=== PATIENT | female | born 1965 | race Caucasian/White ===

== ENCOUNTER 2016-06-22 03:58 | Inpatient (IN) ==
[2016-06-22] MEDS ORDERED: Ipratropium/Albuterol Neb 3 ML IH ONE ×2 (04:00→09:09)
[2016-06-22] MEDS ORDERED: methylPREDNISolone 125 MG/2 ML VIAL IVP ONE (04:00)
--- NOTE | 2016-06-22 04:04 | Emergency Department Note ---
START Narrative - START START: I examined this patient and my medical decision-making was reviewed with the CAREER COACH/PA/Advanced Practice Nurse/Resident Physician. I agree with the documented findings, disposition and treatment plan as described except to the extent set forth below. ED attending note: Patient seen with emergency medicine resident Dr. Randle. Please see a copy of his note for details of the H&P, evaluation, management and disposition of this patient. We independently had [id number] contact with the patient Briefly: A 51-year-old female home O2 dependent stage IV COPD via EMS for increasing shortness of breath fever fatigue and green sputum. Has a 50+ pack year tobacco history. Patient's bilateral expiratory wheezes with decreased air movement bilaterally. Appears fatigued and ill but nontoxic. Satting 80% on supplemental O2. Patient to iv steroids EKG chest x-ray labs. Disposition pending. Admission likely however patient would like to go home if possible depending upon how she responds to treatment. Provided 35 minutes of critical care services for this patient.
--- NOTE | 2016-06-22 04:16 | Emergency Department Note ---
Disposition Clinical Impression: Acute exacerbation of chronic obstructive airways disease, Community acquired pneumonia Disposition: Admitted As Inpatient Condition: Good Referrals: Rosie Reed MD [Primary Care Provider] - Forms: ED Satisfaction Letter SOB HPI - General Chief Complaint: ED Shortness of Breath/Dyspnea Stated Complaint: CATHY Time Seen by Provider: 06/22/16 04:05 Source: patient, EMS Mode of arrival: EMS Limitations: no limitations Nursing Notes Reviewed: Yes Vital Signs Reviewed: Yes - History of Present Illness 51-year-old female presents to the ER with a chief complaint of shortness of breath. Pt Subjective Complaint: shortness of breath, cough, chest pain Onset (ago): day(s) (2) Context: recent illness Severity: severe Consistency/Duration: intermittent Improves with: oxygen, rest, bronchodilators Worsens with: nothing Known history of: COPD Associated symptoms: Reports: chest pain, fever, cough, wheezing, sputum production. Denies: lower extremity pain Treatment prior to arrival: oxygen, bronchodilator Cough present: Yes Cough Description: Involuntary Cough Frequency: Intermittent Sputum production: Yes Sputum Amount: Small Sputum Color: Yellow - Related Data Home oxygen amount: 2 liters Allergies Allergy/AdvReac Type Severity Reaction Status Date / Time No Known Allergies Allergy Verified 06/22/16 04:00 All systems ED: reviewed and negative except as stated. Constitutional: Reports: fever, chills Cardiovascular: Reports: chest pain Respiratory: Reports: cough, dyspnea, wheezes Gastrointestinal: Denies: abdominal pain, nausea, vomiting Musculoskeletal: Reports: neck pain Past Medical History - Past Medical History Attestation: Yes The following information was validated with the patient. Source: patient Medical history: Reports: COPD Surgical history: Reports: non-contributory - Social History Smoking Status: Current every day smoker Packs per day: 1 Physical Exam - General Limitations: no limitations General appearance: alert, in distress - Head Head exam: atraumatic, normocephalic, normal inspection - Eye Eye exam: Present: normal appearance - ENT ENT exam: normal exam - Neck Neck exam: Present: normal inspection - Chest Chest inspection: Present: normal inspection, symmetric chest wall rise - Respiratory Respiratory exam: Present: respiratory distress (Patient has diffuse expiratory wheezing with prolonged expiratory phase. She exhibits some abdominal breathing.), wheezes, accessory muscle use, prolonged expiratory phase - Cardiovascular Cardiovascular exam: Present: normal rhythm, tachycardia, normal heart sounds - Abdominal Exam Abdominal exam: Present: soft, Non-Tender. Absent: tenderness - Extremities Exam Extremities exam: Present: normal inspection, full ROM - Expanded Lower Extremity Exam Hip/Pelvis exam: Present: normal inspection, full ROM Upper leg exam: Present: normal inspection, full ROM Knee exam: Present: normal inspection, full ROM Lower leg exam: Present: normal inspection, full ROM Ankle exam: Present: normal inspection, full ROM Foot/toe exam: Present: normal inspection, full ROM - Neurological Exam Neurological exam: Present: alert - Psychiatric Psychiatric exam: Present: normal affect, normal mood - Skin Skin exam: Present: warm, dry, intact, normal color Course Course Narrative: 51-year-old female history of COPD, oxygen dependent on 2L nasal cannula continuous at home with one pack per day smoking for 30 years who presents to the ER via EMS with a chief complaint of shortness of breath. EMS reports she was in the mid 80s when they arrived at her house. Patient states she has been short of breath for the last 2 days. Reports intermittent fevers at home as well as cough with a productive yellow sputum. No sick contacts that she is aware of. Also reports that she has had left-sided chest pain since it started with pain into her neck. She denies a history of cardiac events, DVT or PE. No other complaints at this time. Patient was given 2 breathing treatments at home and a DuoNeb and route. She continues to have diffuse wheezing with accessory muscle use. We will give another round of DuoNeb here as well as IV Solu-Medrol. - Reevaluation(s) Reevaluation #1: Discussed results of imaging and lab work with the patient. She is not wishing to be admitted however family in the room has convinced her that she should stay. We will order blood cultures 2 and she is febrile here. Also ordered Levaquin for community acquired pneumonia. Vital Signs Temperature 102.8 F H 06/22/16 04:03 Pulse Rate 104 06/22/16 04:03 Respiratory Rate 22 06/22/16 04:03 Blood Pressure 126/70 06/22/16 04:03 O2 Sat by Pulse Oximetry 93 L 06/22/16 04:03 Temperature 102.8 F H 06/22/16 04:03 Pulse Rate 105 06/22/16 05:04 Respiratory Rate 24 06/22/16 05:04 Blood Pressure 119/82 06/22/16 05:04 O2 Sat by Pulse Oximetry 91 L 06/22/16 05:04 Oxygen Delivery Oxygen Delivery Nasal Cannula Shortness of Breath/Dyspnea - MDM Narrative Medical decision making narrative: 51-year-old female presents to the ER with a chief complaint of shortness of breath. Has been going on for roughly 2 days. She has had fevers at home. Here her chest x-ray shows a developing left lower lobe pneumonia. EKG is sinus tach. Troponin is negative. No white count. Febrile here to 102.8. Blood cultures have been obtained and communicative or pneumonia antibiotics have been started. Patient is requiring increased supplemental O2 from baseline. Patient to be admitted to the hospital for further management. - Lab Data Lab results reviewed: Yes I reviewed the patient's lab results. Result diagrams: 06/22/16 04:26 06/22/16 04:26 Lab Results 06/22/16 06/22/16 06/22/16 Range/Units 04:26 04:26 04:26 WBC 9.7 (4.3-11.1) K/mcL RBC 4.43 (3.82-4.97) M/mcL Hgb 14.1 (11.5-15.4) g/dL Hct 41.6 (35.3-44.9) % MCV 93.9 (83.0-100.0) fL MCH 31.8 (28.0-33.3) pg MCHC 33.9 (31.6-35.5) g/dL RDW 13.9 (11.5-14.5) % Plt Count 144 (140-400) K/mcL MPV 10.9 (9.4-12.4) fL Immature Gran % 0.3 (0-4) % Seg Neutrophils % 79.2 % Lymphocytes % 9.8 % Monocytes % 10.6 % Eosinophils % 0.0 % Basophils % 0.1 % Neutrophils # 7.6 (1.6-8.9) K/mcL Lymphocytes # 1.0 (0.6-4.6) K/mcL Monocytes # 1.0 (0.0-1.3) K/mcL Eosinophils # 0.0 (0.0-0.6) K/mcL Basophils # 0.0 (0.0-0.2) K/mcL Sodium 131 L (136-145) mEq/L Potassium 3.1 L (3.5-4.5) mEq/L Chloride 95 L (98-109) mEq/L Carbon Dioxide 27 (19-29) mEq/L BUN 6 L (7-20) mg/dL Creatinine 0.68 (0.57-1.11) mg/dL Est GFR ( Amer) > 60 (> 60) Est GFR (Non-Af Amer) > 60 (> 60) BUN/Creatinine Ratio 9 (6-26) Glucose 123 H (70-99) mg/dL Calculated Osmolality 271 L (280-300) Lactic Acid 0.9 (0.5-2.2) mmol/L Calcium 8.6 (8.6-10.8) mg/dL Troponin I (0-0.03) ng/mL B-Natriuretic Peptide (0-100) pg/mL 06/22/16 06/22/16 Range/Units 04:26 04:26 WBC (4.3-11.1) K/mcL RBC (3.82-4.97) M/mcL Hgb (11.5-15.4) g/dL Hct (35.3-44.9) % MCV (83.0-100.0) fL MCH (28.0-33.3) pg MCHC (31.6-35.5) g/dL RDW (11.5-14.5) % Plt Count (140-400) K/mcL MPV (9.4-12.4) fL Immature Gran % (0-4) % Seg Neutrophils % % Lymphocytes % % Monocytes % % Eosinophils % % Basophils % % Neutrophils # (1.6-8.9) K/mcL Lymphocytes # (0.6-4.6) K/mcL Monocytes # (0.0-1.3) K/mcL Eosinophils # (0.0-0.6) K/mcL Basophils # (0.0-0.2) K/mcL Sodium (136-145) mEq/L Potassium (3.5-4.5) mEq/L Chloride (98-109) mEq/L Carbon Dioxide (19-29) mEq/L BUN (7-20) mg/dL Creatinine (0.57-1.11) mg/dL Est GFR ( Amer) (> 60) Est GFR (Non-Af Amer) (> 60) BUN/Creatinine Ratio (6-26) Glucose (70-99) mg/dL Calculated Osmolality (280-300) Lactic Acid (0.5-2.2) mmol/L Calcium (8.6-10.8) mg/dL Troponin I 0.00 (0-0.03) ng/mL B-Natriuretic Peptide < 10 (0-100) pg/mL - Radiology Data Radiology results reviewed: Yes I reviewed the patient's radiology results. Chest X-Ray 06/22/16 04:00 IMPRESSION: Findings compatible with COPD with interval development of left basilar pneumonia. D/ / Solitario Camacho MD / Solitario Camacho MD Interpreting Provider: Solitario Camacho MD - EKG Data EKG attestation: Yes I reviewed and interpreted this EKG. EKG results narrative: EKG demonstrated sinus tachycardia with a rate of 107. IN interval 84 QRS duration 85 QTC 374 normal axis and no ST elevations or depressions. No acute ischemic findings. No significant changes from previous EKG dated 09/13/1999 S.B.ARubén - Lokesh.[email or web address] Situation: Demographics, MOA Background: Presenting Complaint, Relevant PMH, Meds, & Allergies Assessment: Vital Signs, Course and respsone to treatment, Exam Concerns, Patient/Family Expectation, Pertinant Lab Results, Outstanding Labs Recommendation: Barrier(s) to disposition, Recommendation based on pending studies, treatments, or consults S.B.ARubén Report Given to: Dr. Kitty Church Repor Time: 05:24
[2016-06-22] MEDS ORDERED: *HR* HYDROcodone/Acet 5/325 mg TABLET PO ONE (04:40)
[2016-06-22 04:43] LABS: Basophils % 0.1 %; Hematocrit 41.6 % (35.3-44.9); Hemoglobin 14.1 g/dL (11.5-15.4); Immature Granulocytes % 0.3 % (0-4); Lymphocytes % 9.8 %; Mean Corpuscular HGB Conc 33.9 g/dL (31.6-35.5); Mean Corpuscular Hemoglobin 31.8 pg (28.0-33.3); Mean Corpuscular Volume 93.9 fL (83.0-100.0); Mean Platelet Volume 10.9 fL (9.4-12.4); Monocytes % 10.6 %; Neutrophils # 7.6 K/mcL (1.6-8.9); Platelet Count 144 K/mcL (140-400); Red Blood Count 4.43 M/mcL (3.82-4.97); Red Cell Distribution Width 13.9 % (11.5-14.5); Segmented Neutrophils % 79.2 %
[2016-06-22] MEDS ORDERED: Levofloxacin 750 MG/150 ML 750 MG/150 ML BAG IVPB ONE (04:45)
[2016-06-22 04:52] LABS: BUN/Creatinine Ratio 9 (6-26); Blood Urea Nitrogen 6 mg/dL (7-20); Calcium 8.6 mg/dL (8.6-10.8); Carbon Dioxide 27 mEq/L (19-29); Chloride 95 mEq/L (98-109); Glucose 123 mg/dL (70-99); Osmolality,Calculated 271 (280-300); Potassium 3.1 mEq/L (3.5-4.5); Sodium 131 mEq/L (136-145); eGFR For African Americans > 60 (> 60); eGFR For Non-African Americans > 60 (> 60)
[2016-06-22] MEDS ORDERED: Ibuprofen 400 MG TABLET PO PRN (08:32)
[2016-06-22] MEDS ORDERED: Naloxone 0.4 MG/ML INJ IVP PRN (08:32)
[2016-06-22] MEDS ORDERED: *HR* HYDROcodone/Acet 5/325 mg TABLET PO PRN (08:32)
[2016-06-22] MEDS ORDERED: Acetaminophen 325 MG TABLET PO PRN (08:32)
[2016-06-22] MEDS ORDERED: 0.9 % Sodium Chloride 1,000 ML IVC SCH (08:45)
[2016-06-22] MEDS ORDERED: Levofloxacin 750 MG/150 ML 750 MG/150 ML BAG IVPB SCH (09:00)
--- NOTE | 2016-06-22 09:06 | Internal Med History&Physical ---
Date of Encounter: 06/22/16 Time of Encounter: 09:01 Assessment and Plan (1) Tobacco abuse Current visit: Yes Status: Acute I have offered smoking cessation counseling. The patient has not ready to contemplate the idea quitting smoking at this time. I will provide nicotine replacement therapy during this hospitalization. (2) Sepsis due to pneumonia Current visit: Yes Status: Acute Diagnosed based on tachycardia and tachypnea and presence of infection in the form of pneumonia. Lactic acid was within normal limits. We will treat the patient with normal saline IV bolus. 2 blood cultures were sent. We will follow up blood cultures respiratory culture. Will treat patient with IV Levaquin for pneumonia. (3) DVT prophylaxis Current visit: Yes Status: Acute Encourage early ambulation. She does not require some pharmacological prophylaxis as she has fully ambulatory. (4) Acute and chronic respiratory failure with hypoxia Current visit: Yes Status: Acute Oxygen by nasal cannula to maintain saturation above 92. (5) Acute exacerbation of chronic obstructive airways disease Current visit: Yes Status: Acute Diagnosed based on tachypnea, hypoxia and profound expiratory wheezes. We will treat this with inhaled bronchodilators and intravenous Levaquin as well as intravenous steroids. (6) Community acquired pneumonia Current visit: Yes Status: Acute We will treat her with IV Levaquin, oxygen by nasal cannula. Follow-up blood cultures, obtain respiratory culture. She has pleuritic chest pain and will provide [place] for pain. (7) Pleuritic chest pain Current visit: Yes Status: Acute Likely secondary to pneumonia. We will treat this with [place]. ACS is also a possibility given tobacco smoking is a risk factor as well as positive family history. We will place the patient on telemetry and trend troponin. Internal Medicine - H&P: HPI Chief complaint: Chest pain Admitted From: Emergency Dept Plans for Post Hospital Care: Home History of present illness: Ms. Barraza is a 51 year old female with past medical history significant for COPD who presented to the hospital for chest pain and shortness of breath. She states that she started having severe, sharp left-sided chest pain, located under her left breast which started 2 days ago and had progressively got worse. The pain was worse on inspiration and was associated with worsening shortness of breath and wheezing. She reports associated productive cough and subjective fevers. She called EMS and on arrival her oxygen saturation was 83%. In the emergency department a chest x-ray showed a left lower lobe infiltrate. She was hypoxic to low 80s on 2 L by nasal cannula which she usually wears at home. She was treated with Levaquin and DuoNeb and Solu-Medrol and referred for admission. Review of systems: As above, additionally positive for headache, positive for anxiety, positive for back pain, positive for seasonal allergies. The remainder of 10 point review of systems was negative. Past medical history COPD and chronic hypoxic respiratory failure. She wears oxygen by nasal cannula at night at 2 L/m. Surgical history: 2, hysterectomy and cholecystectomy Family history patient's mother suffered with COPD. 2 brothers suffered coronary artery disease. Her older brother had a CABG at age 52. Patient's sister suffered a myocardial infarction. Past Med Surg Social Fam HX - Past Medical History Medical history: COPD Psychiatric history: anxiety - Past Surgical History Surgical History: non-contributory - Social History Smoking Status: Current every day smoker Packs per day: 1 Smokeless Tobacco Status: No Alcohol use: none Drug use: none Internal Medicine - H&P: Meds Aclidinium [place] [Tudorza Pressair] 1 puff IH BID 06/22/16 [History] Albuterol Neb [Proventil Neb] 2.5 mg IH Q4HR PRN 06/22/16 [History] Albuterol Sulfate [Albuterol Inhaler] 2 puff IH Q4H PRN 06/22/16 [History] Budesonide/Formoterol 160/4.5 [Symbicort 160/4.5] 1 puff IH BIDR 06/22/16 [ History] Montelukast [Singulair] 10 mg PO DAILY 06/22/16 [History] Nicotine Patch [Nicoderm] 21 mg TP DAILY 06/22/16 [History] Allergies No Known Allergies Allergy (Verified 06/22/16 04:00) All Systems PM: A 10-system review of systems was performed and is negative for pertinent findings except as documented above in the HPI. - Constitutional Vitals: Temp Pulse Resp BP Pulse Ox 97.6 F 89 22 93/60 93 L 06/22/16 08:01 06/22/16 08:01 06/22/16 08:01 06/22/16 08:01 06/22/16 08:01 General appearance: Present: A&O X 3 - Eye Eye exam: Present: PERRL, conjuntiva pink, sclera anicteric Pupils: Present: PERRL - Neck Neck exam general surgery: Present: supple, trachea midline. Absent: lymphadenopathy - Respiratory Respiratory exam: Present: rales, wheezes. Absent: accessory muscle use, rhonchi Additional comments: Bilateral expiratory wheezes and fine crackles at the left base. - Cardiovascular Cardiovascular exam: Present: RRR, +S1, +S2. Absent: diastolic murmur, gallop, rubs, systolic murmur - GI/Abdominal GI/Abdominal exam: Present: normal bowel sounds, soft, no peritoneal signs. Absent: distended, tenderness - Extremities Exam Extremities exam: Present: warm, radial pulses palpable and symetrical. Absent : calf tenderness, cyanotic, pedal edema - Neurological Exam Neurological exam: Present: CN II-XII intact, oriented X3, no focal deficits. Absent: pronater drift, facial droop, speech deficit - Skin Skin exam: Present: dry, intact Internal Med - H&P Results - Labs CBC & Chem 7: 06/22/16 04:26 06/22/16 04:26 - EKG Data -: EKG Interpreted by Myself (Sinus tachycardia 10 7 bpm, normal axis and intervals, nonspecific ST and T) EKG shows normal: intervals, ST-T waves (Nonspecific ST T wave changes)
[2016-06-22] MEDS ORDERED: Ipratropium/Albuterol Neb 3 ML IH PRN (09:10)
[2016-06-22 10:46] VITALS: BP 96/61
[2016-06-22] MEDS ORDERED: 0.9 % Sodium Chloride 1,000 ML IVC ONE (10:48)
[2016-06-22] MEDS ORDERED: Nicotine 21 MG PATCH.TD24 TD SCH (11:00)
[2016-06-22] MEDS ORDERED: Ipratropium/Albuterol Neb 3 ML IH SCH (12:00)
[2016-06-22] MEDS ORDERED: MethylPREDNISolone 40 MG/ML VIAL IVP SCH (12:00)
--- NOTE | 2016-06-22 12:58 | Discharge Summary ---
Date of Encounter: 06/23/16 Time of Encounter: 12:54 - Discharge Diagnosis (1) Tobacco abuse Priority: Secondary Status: Acute (2) Sepsis due to pneumonia Priority: Secondary Status: Acute (3) DVT prophylaxis Priority: Secondary Status: Acute (4) Acute and chronic respiratory failure with hypoxia Priority: Secondary Status: Acute (5) Acute exacerbation of chronic obstructive airways disease Priority: Secondary Status: Acute (6) Community acquired pneumonia Priority: Primary Status: Acute (7) Pleuritic chest pain Priority: Secondary Status: Acute - Discharge Medications Prescriptions: GuaiFENesin/Dextromethorphan [Robitussin/Dm] 5 ml PO Q4HR PRN #150 udc PRN Reason: Cough Ipratropium/Albuterol Neb [Duoneb] 3 ml IH [id number] #60 inhsol Levofloxacin [Levaquin] 750 mg PO DAILY #6 tablet PredniSONE 40 mg PO DAILY #5 tablet Home Medications: Acetaminophen [Tylenol] 650 mg PO Q6HR PRN #0 tablet 06/22/16 [Rx] Aclidinium [place] [Tudorza Pressair] 1 puff IH BID 06/22/16 [History] Albuterol Neb [Proventil Neb] 2.5 mg IH Q4HR PRN 06/22/16 [History] Albuterol Sulfate [Albuterol Inhaler] 2 puff IH Q4H PRN 06/22/16 [History] Budesonide/Formoterol 160/4.5 [Symbicort 160/4.5] 1 puff IH BIDR 06/22/16 [ History] GuaiFENesin/Dextromethorphan [Robitussin/Dm] 5 ml PO Q4HR PRN #150 udc 06/22/16 [Rx] Ipratropium/Albuterol Neb [Duoneb] 3 ml IH [id number] #60 inhsol 06/22/16 [Rx] Levofloxacin [Levaquin] 750 mg PO DAILY #6 tablet 06/22/16 [Rx] Montelukast [Singulair] 10 mg PO DAILY 06/22/16 [History] Nicotine Patch [Nicoderm] 21 mg TP DAILY 06/22/16 [History] PredniSONE 40 mg PO DAILY #5 tablet 06/22/16 [Rx] Allergies/Adverse Reactions: Allergies No Known Allergies Allergy (Verified 06/22/16 04:00) Date of admission: 06/22/16 09:12 Primary care physician: Rosie Reed MD - Patient Status Disposition: Left Against Medical Advice Condition: Good Overall status at discharge: patient is not back to baseline - Discharge Instructions Follow Up With: Rosie Reed MD [Primary Care Provider] - - Diet and Activity Diet: advance to your usual diet Hospital course: Ms. Barraza is a 51 year old female who presented to the hospital with shortness of breath and chest pain. She was diagnosed with left lower lobe pneumonia. She was admitted to the medical service and treated with IV Levaquin, IV fluids , oxygen by nasal cannula, inhaled bronchodilators and intravenous steroids for COPD exacerbation. She improved. On the day of admission she decided to sign out AGAINST MEDICAL ADVICE. I have had repeated conversations with her regarding the risks of her leaving AGAINST MEDICAL ADVICE and the benefits of continuing to be treated in the hospital. Both the floor nurse and the nurse managers separately asked her to reconsider. I have evaluated her mental status and capacities several times during the day and found her to be appropriate. There was no evidence of any mental impairment caused by medical disease such as severe sepsis or hypercarbia. She signed out AGAINST MEDICAL ADVICE. I gave her prescriptions for antibiotics prednisone bronchodilators. - Time Spent with Patient Total time spent providing and/or coordinating discharge services: - Constitutional Vitals: Temp Pulse Resp BP Pulse Ox 98.4 F 86 18 96/61 94 L 06/22/16 10:45 06/22/16 10:45 06/22/16 11:15 06/22/16 10:45 06/22/16 11:15 General appearance: Present: A&O X 3 - Respiratory Respiratory exam: Present: wheezes. Absent: accessory muscle use, rales, rhonchi, tachypnea - Cardiovascular Cardiovascular exam: Present: RRR, +S1, +S2. Absent: diastolic murmur, gallop, rubs, systolic murmur
--- NOTE | 2016-06-22 15:26 | Electrocardiograph Report ---
[address] [place], [place] [address] Test Date: 2016-06-22 Pat Name: [facility] Department: [facility] Room: 2A32 Gender: F [employer]: : [id number] Requested By: Jayant Covarrubias Order Number: [id number] Reading MD: Russ Bermeo MD Measurements Intervals [place] Rate: 107 P: 67 [place]: 84 QRS: 45 QRSD: 85 T: 6 QT: 311 QTc: 374 Interpretive Statements SINUS TACHYCARDIA WITH SHORT [place] INTERVAL Electronically Signed On 06-22-2016 15:25:07 EST by Russ Bermeo MD
[2016-06-23] MEDS ORDERED: Nicotine 14 MG PATCH.TD24 TD SCH (09:00)
[2016-06-23] MEDS ORDERED: Levofloxacin 750 MG/150 ML 750 MG/150 ML BAG IVPB SCH (09:00)
== END 2016-06-22 14:25 | disposition left against medical advice (07) | DRG 720 ==
LOC: 2ANU 03:58 → EMEROO 03:58 → 2ANU 05:59
PROVIDERS: ADMIT Pediatrics; ATTEND Internal Medicine

== ENCOUNTER 2019-02-19 09:49 | Observation (INO) ==
[2019-02-19] MEDS ORDERED: Aspirin 325 MG TABLET PO ONE (10:12)
[2019-02-19] MEDS ORDERED: Nitroglycerin 0.4 MG TAB.SUBL SL PRN (10:12)
[2019-02-19 10:25] LABS: Basophils % 0.3 %; Eosinophils # 0.3 K/mcL (0.0-0.6); Eosinophils % 2.7 %; Hematocrit 50.8 % (35.3-44.9); Hemoglobin 16.8 g/dL (11.5-15.4); Immature Granulocytes % 0.4 % (0-4); Lymphocytes # 1.9 K/mcL (0.6-4.6); Lymphocytes % 18.1 %; Mean Corpuscular HGB Conc 33.1 g/dL (31.6-35.5); Mean Corpuscular Hemoglobin 31.7 pg (28.0-33.3); Mean Corpuscular Volume 95.8 fL (83.0-100.0); Mean Platelet Volume 10.4 fL (9.4-12.4); Monocytes % 9.8 %; Neutrophils # 7.2 K/mcL (1.6-8.9); Platelet Count 219 K/mcL (140-400); Red Cell Distribution Width 13.1 % (11.5-14.5); Segmented Neutrophils % 68.7 %; White Blood Count 10.5 K/mcL (4.3-11.1)
[2019-02-19] MEDS ORDERED: 0.9 % Sodium Chloride 500 ML IVC ONE ×2 (10:34→12:21)
[2019-02-19 10:47] LABS: BUN/Creatinine Ratio 15 (6-26); Blood Urea Nitrogen 9 mg/dL (6-20); Calcium 9.7 mg/dL (8.6-10.3); Carbon Dioxide 27 mEq/L (23-29); Chloride 100 mEq/L (98-107); Glucose 138 mg/dL (70-105); Osmolality,Calculated 281 (280-300); Potassium 4.2 mEq/L (3.5-5.1); Sodium 135 mEq/L (136-145); eGFR For African Americans > 60 (> 60); eGFR For Non-African Americans > 60 (> 60)
[2019-02-19 10:48] LABS: Troponin I < 0.03 ng/mL (< 0.04)
[2019-02-19 11:00] LABS: INR 1.1
[2019-02-19 11:02] LABS: Activated Partial Thrombo Time 33.2 Seconds (26.0-36.0)
[2019-02-19 11:03] LABS: D-Dimer < 215 ng/mLFEU (0-500)
[2019-02-19] MEDS ORDERED: Ipratropium/Albuterol Neb 3 ML IH ONE (11:43)
[2019-02-19] MEDS ORDERED: *HR* FentaNYL (PF) 100 MCG/2 ML VIAL IVP ONE (11:44)
[2019-02-19] MEDS ORDERED: *HR* Promethazine 25 MG/ML VIAL IVP PRN (13:34)
[2019-02-19] MEDS ORDERED: Naloxone 0.4 MG/ML INJ IVP PRN (13:34)
[2019-02-19] MEDS ORDERED: Ondansetron ODT 4 MG TAB.RAPDIS SL PRN (13:34)
[2019-02-19] MEDS ORDERED: Morphine Sulfate 2 MG/ML SYRINGE IVP PRN (14:32)
[2019-02-19] MEDS ORDERED: Ipratropium/Albuterol Neb 3 ML IH PRN (16:10)
[2019-02-19] MEDS: *HR* OxyCODONE Immed Rel 5 MG TABLET PO PRN ×2 (17:41→22:46)
[2019-02-19] MEDS ORDERED: Nicotine 21 MG PATCH.TD24 TD SCH (20:15)
[2019-02-19] MEDS: Budesonide/Formoterol 160/4.5 1 PUFF INH IH SCH (21:35)
[2019-02-20 02:11] LABS: Basophils % 0.3 %; Eosinophils # 0.2 K/mcL (0.0-0.6); Eosinophils % 2.9 %; Hematocrit 43.1 % (35.3-44.9); Immature Granulocytes % 0.4 % (0-4); Lymphocytes # 1.6 K/mcL (0.6-4.6); Lymphocytes % 22.9 %; Mean Corpuscular HGB Conc 33.6 g/dL (31.6-35.5); Mean Corpuscular Hemoglobin 31.7 pg (28.0-33.3); Mean Corpuscular Volume 94.3 fL (83.0-100.0); Mean Platelet Volume 10.5 fL (9.4-12.4); Monocytes # 0.7 K/mcL (0.0-1.3); Neutrophils # 4.3 K/mcL (1.6-8.9); Platelet Count 187 K/mcL (140-400); Red Blood Count 4.57 M/mcL (3.82-4.97); Red Cell Distribution Width 13.2 % (11.5-14.5); Segmented Neutrophils % 63.5 %; White Blood Count 6.8 K/mcL (4.3-11.1)
[2019-02-20 02:13] LABS: Hemoglobin 14.5 g/dL (11.5-15.4)
[2019-02-20 02:34] LABS: BUN/Creatinine Ratio 26 (6-26); Blood Urea Nitrogen 14 mg/dL (6-20); Calcium 8.7 mg/dL (8.6-10.3); Carbon Dioxide 28 mEq/L (23-29); Chloride 105 mEq/L (98-107); Glucose 98 mg/dL (70-105); Osmolality,Calculated 284 (280-300); Sodium 137 mEq/L (136-145); eGFR For African Americans > 60 (> 60); eGFR For Non-African Americans > 60 (> 60)
[2019-02-20] MEDS: Budesonide/Formoterol 160/4.5 1 PUFF INH IH SCH (07:32)
[2019-02-20] MEDS ORDERED: D5% in Water 1,000 ML IVC PRN (08:43)
[2019-02-20] MEDS ORDERED: Dextrose Gel 15 GM/37.5 ML TUBE PO PRN ×2 (08:43)
[2019-02-20] MEDS ORDERED: *HR* Dextrose 50 % in Water (Syg) 50 ML SYRINGE IVP PRN (08:43)
[2019-02-20] MEDS ORDERED: NON-FORMULARY MEDICATION 1 EACH EACH (Fluticasone/Vilanterol [Breo Ellipta 100-25 Mcg Inh] PO SCH (09:00)
[2019-02-20] MEDS ORDERED: Aspirin 81 MG TAB.CHEW PO SCH (09:00)
[2019-02-20 10:37] VITALS: BP 96/64
[2019-02-20] MEDS ORDERED: Insulin LISPRO 300 UNITS/3 ML VIAL SQ SCH ×2 (11:30→21:00)
== END 2019-02-20 13:20 | disposition home or self-care (01) ==
LOC: 3BNU 09:49 → EMEROOARM 09:49 → 3BNU 13:38
PROVIDERS: ADMIT Student in an Organized Health Care Education/Training Program; ATTEND Student in an Organized Health Care Education/Training Program

== ENCOUNTER 2019-03-13 21:20 | Inpatient (IN) ==
[2019-03-13] MEDS ORDERED: methylPREDNISolone 125 MG/2 ML VIAL ONE (21:28)
[2019-03-13] MEDS ORDERED: *HR* LORazepam 2 MG/ML VIAL ONE (21:29)
[2019-03-13] MEDS ORDERED: Ipratropium/Albuterol Neb 3 ML ONE (21:29)
[2019-03-13] MEDS ORDERED: cefTRIAXone 1,000 MG in Water for inj. (sterile) 10 ML IVP ONE (21:32)
[2019-03-13] MEDS ORDERED: Azithromycin 500 MG in 0.9 % Sodium Chloride 250 ML IVPB ONE (21:32)
[2019-03-13] MEDS ORDERED: *HR* LORazepam 2 MG/ML VIAL IVP ONE (21:33)
[2019-03-13] MEDS ORDERED: methylPREDNISolone 125 MG/2 ML VIAL IVP ONE (21:34)
[2019-03-13] MEDS ORDERED: Cefepime HCl 2,000 MG in Water for inj. (sterile) 20 ML IVP ONE (21:38)
[2019-03-13] MEDS ORDERED: 0.9 % Sodium Chloride 250 ML ONE (21:41)
[2019-03-13 21:47] LABS: Basophils % 0.2 %; Eosinophils # 0.1 K/mcL (0.0-0.6); Eosinophils % 0.5 %; Hematocrit 50.7 % (35.3-44.9); Hemoglobin 17.5 g/dL (11.5-15.4); Immature Granulocytes % 0.4 % (0-4); Lymphocytes # 2.1 K/mcL (0.6-4.6); Lymphocytes % 12.7 %; Mean Corpuscular HGB Conc 34.5 g/dL (31.6-35.5); Mean Corpuscular Hemoglobin 31.9 pg (28.0-33.3); Mean Corpuscular Volume 92.3 fL (83.0-100.0); Monocytes # 1.4 K/mcL (0.0-1.3); Monocytes % 8.8 %; Neutrophils # 12.7 K/mcL (1.6-8.9); Platelet Count 299 K/mcL (140-400); Red Blood Count 5.49 M/mcL (3.82-4.97); Red Cell Distribution Width 12.9 % (11.5-14.5); Segmented Neutrophils % 77.4 %; White Blood Count 16.4 K/mcL (4.3-11.1)
[2019-03-13 21:52] LABS: INR 1.1; Prothrombin Time 12.8 Seconds (9.4-12.1)
[2019-03-13] MEDS ORDERED: Ondansetron 4 MG/2 ML VIAL IVP ONE (21:52)
[2019-03-13 22:05] LABS: VBG HCO3 27 mEq/L (21-27); VBG PCO2 57 mmHg (41-51); VBG PH 7.28 pH Units (7.32-7.42); VBG PO2 84 mmHg (25-50)
[2019-03-13 22:11] LABS: Alanine Aminotransferase 21 Units/L (7-52); Albumin 4.3 g/dL (3.5-5.7); Albumin/Globulin Ratio 1.1 (1.1-2.2); Alkaline Phosphatase 102 Units/L (34-104); Aspartate Amino Transferase 26 Units/L (13-39); BUN/Creatinine Ratio 16 (6-26); Bilirubin,Direct 0.2 mg/dL (0.0-0.2); Bilirubin,Indirect 0.3 mg/dL (0.0-1.0); Bilirubin,Total 0.5 mg/dL (0.3-1.0); Blood Urea Nitrogen 8 mg/dL (6-20); Calcium 10.1 mg/dL (8.6-10.3); Carbon Dioxide 27 mEq/L (23-29); Chloride 96 mEq/L (98-107); Globulin 3.8 g/dL (2.4-3.5); Glucose 218 mg/dL (70-105); Osmolality,Calculated 283 (280-300); Potassium 4.1 mEq/L (3.5-5.1); Sodium 134 mEq/L (136-145); Total Protein 8.1 g/dL (6.4-8.9); Troponin I 0.03 ng/mL (< 0.04); eGFR For African Americans > 60 (> 60); eGFR For Non-African Americans > 60 (> 60)
[2019-03-13] MEDS ORDERED: 0.9 % Sodium Chloride 1,500 ML IV ONE (22:43)
[2019-03-13] MEDS ORDERED: 0.9 % Sodium Chloride 1,000 ML ONE (23:14)
[2019-03-14] MEDS ORDERED: Morphine Sulfate 2 MG/ML SYRINGE IVP ONE (00:42)
[2019-03-14] MEDS ORDERED: Naloxone 0.4 MG/ML INJ IVP PRN (01:17)
[2019-03-14] MEDS ORDERED: Vancomycin (wt based) 1,000 MG VIAL IVPB SCH (02:00)
[2019-03-14] MEDS ORDERED: Isovue-370 500 ML BOTTLE IVP ONE (02:03)
[2019-03-14] MEDS: Ipratropium/Albuterol Neb 3 ML IH SCH ×6 (03:18→23:49)
[2019-03-14 03:25] LABS: ABG Base Excess 1 mEq/L (-2 to 3); ABG HCO3 29 mEq/L (21-27); ABG Oxygen Saturation 96 % (95-98); ABG PCO2 61 mmHg (35-45); ABG PH 7.29 pH Units (7.32-7.45); ABG PO2 90 mmHg (85-104); ABG TCO2 31 mEq/L (20-26)
[2019-03-14] MEDS: *HR* Heparin 5,000 UNIT/ML VIAL SQ SCH ×3 (05:06→21:28)
[2019-03-14] MEDS: Pantoprazole 40 MG VIAL IVP SCH (05:06)
[2019-03-14] MEDS: Acetaminophen 325 MG TABLET PO PRN ×2 (05:07→12:11)
[2019-03-14 05:21] LABS: Hematocrit 43.2 % (35.3-44.9); Hemoglobin 14.4 g/dL (11.5-15.4); Immature Granulocytes % 0.3 % (0-4); Lymphocytes # 0.4 K/mcL (0.6-4.6); Mean Corpuscular HGB Conc 33.3 g/dL (31.6-35.5); Mean Corpuscular Hemoglobin 31.6 pg (28.0-33.3); Mean Corpuscular Volume 94.9 fL (83.0-100.0); Monocytes # 0.1 K/mcL (0.0-1.3); Monocytes % 0.7 %; Neutrophils # 6.3 K/mcL (1.6-8.9); Platelet Count 186 K/mcL (140-400); Red Blood Count 4.55 M/mcL (3.82-4.97); White Blood Count 6.8 K/mcL (4.3-11.1)
[2019-03-14 05:42] LABS: BUN/Creatinine Ratio 22 (6-26); Blood Urea Nitrogen 10 mg/dL (6-20); Carbon Dioxide 25 mEq/L (23-29); Chloride 104 mEq/L (98-107); Glucose 137 mg/dL (70-105); Osmolality,Calculated 283 (280-300); Potassium 4.4 mEq/L (3.5-5.1); Sodium 136 mEq/L (136-145); eGFR For African Americans > 60 (> 60); eGFR For Non-African Americans > 60 (> 60)
[2019-03-14] MEDS ORDERED: Aminoglycoside Consult 1 EACH MC ONE (07:33)
[2019-03-14] MEDS: Budesonide/Formoterol 80/4.5 1 PUFF INH IH SCH (07:50)
[2019-03-14] MEDS ORDERED: Piperacillin/Tazobactam 3.375 GM in 0.9 % Sodium Chloride Mini Bag 100 ML IVPB SCH (08:00)
[2019-03-14] MEDS ORDERED: levoFLOXacin 750 MG/150 ML 750 MG/150 ML BAG IVPB SCH (09:00)
[2019-03-14] MEDS ORDERED: NON-FORMULARY MEDICATION 1 EACH EACH (Umeclidinium Bromide [Incruse Ellipta] 1 PUFF) IH SCH (09:00)
[2019-03-14] MEDS ORDERED: MethylPREDNISolone 40 MG/ML VIAL IVP ONE (09:00)
[2019-03-14] MEDS: predniSONE 20 MG TABLET PO SCH (09:24)
[2019-03-14] MEDS: Aspirin 81 MG TAB.CHEW PO SCH (09:25)
[2019-03-14] MEDS: Nicotine 21 MG PATCH.TD24 TD SCH (09:25)
[2019-03-14] MEDS ORDERED: 0.9 % Sodium Chloride 500 ML IVC SCH (09:45)
[2019-03-14 10:51] LABS: Bilirubin,Urine Negative (Negative); Blood,Urine Negative (Negative); Clarity,Urine Clear (Clear); Color,Urine Yellow (Yellow); Glucose,Urine (UA) Normal (Normal); Ketones,Urine 15 mg/dL (Negative); Leukocyte Esterase,Urine Negative (Negative); Nitrite,Urine Negative (Negative); Protein,Urine Trace mg/dL (Neg-Trace); Specific Gravity,Urine > 1.030 (1.010-1.025); Urobilinogen,Urine Normal (Normal)
[2019-03-14 12:17] LABS: Adenovirus Not Detected (Not Detect); Bordetella Pertussis Not Detected (Not Detect); Chlamydophila pneumoniae Not Detected (Not Detect); Coronavirus 229E Not Detected (Not Detect); Coronavirus HKU1 Not Detected (Not Detect); Coronavirus NL63 Not Detected (Not Detect); Coronavirus OC43 Not Detected (Not Detect); Human Metapneumovirus Not Detected (Not Detect); Human Rhinovirus/Enterovirus DETECTED (Not Detect); Influenza A Subtype 2009 H1 Not Detected (Not Detect); Influenza A Untypeable Not Detected (Not Detect); Influenza B Not Detected (Not Detect); Mycoplasma pneumoniae Not Detected (Not Detect); Parainfluenza Virus 1 Not Detected (Not Detect); Parainfluenza Virus 2 Not Detected (Not Detect); Parainfluenza Virus 3 Not Detected (Not Detect); Parainfluenza Virus 4 Not Detected (Not Detect); Respiratory Syncytial Virus Not Detected (Not Detect)
[2019-03-14] MEDS: Azithromycin 500 MG in 0.9 % Sodium Chloride 250 ML IVPB SCH (14:02)
[2019-03-14] MEDS: Ketorolac 15 MG/ML VIAL IVP PRN (15:29)
[2019-03-14] MEDS ORDERED: *HR* LORazepam 1 MG TABLET PO ONE (21:20)
[2019-03-14] MEDS ORDERED: Ipratropium/Albuterol Neb 3 ML IH ONE (23:14)
[2019-03-15] MEDS: Ipratropium/Albuterol Neb 3 ML IH SCH ×6 (03:28→23:35)
[2019-03-15 05:03] LABS: Basophils % 0.1 %; Hematocrit 42.4 % (35.3-44.9); Hemoglobin 13.7 g/dL (11.5-15.4); Immature Granulocytes % 0.6 % (0-4); Lymphocytes # 1.5 K/mcL (0.6-4.6); Lymphocytes % 14.5 %; Mean Corpuscular HGB Conc 32.3 g/dL (31.6-35.5); Mean Corpuscular Hemoglobin 31.6 pg (28.0-33.3); Mean Corpuscular Volume 97.7 fL (83.0-100.0); Mean Platelet Volume 10.4 fL (9.4-12.4); Monocytes # 0.9 K/mcL (0.0-1.3); Monocytes % 8.7 %; Neutrophils # 7.7 K/mcL (1.6-8.9); Platelet Count 202 K/mcL (140-400); Red Blood Count 4.34 M/mcL (3.82-4.97); Red Cell Distribution Width 13.2 % (11.5-14.5); Segmented Neutrophils % 76.1 %; White Blood Count 10.1 K/mcL (4.3-11.1)
[2019-03-15] MEDS: *HR* Heparin 5,000 UNIT/ML VIAL SQ SCH ×3 (05:15→22:28)
[2019-03-15] MEDS: Pantoprazole 40 MG VIAL IVP SCH ×2 (05:15→05:30)
[2019-03-15 05:24] LABS: BUN/Creatinine Ratio 40 (6-26); Blood Urea Nitrogen 27 mg/dL (6-20); Calcium 9.3 mg/dL (8.6-10.3); Carbon Dioxide 30 mEq/L (23-29); Chloride 107 mEq/L (98-107); Glucose 117 mg/dL (70-105); Osmolality,Calculated 300 (280-300); Potassium 3.6 mEq/L (3.5-5.1); Sodium 142 mEq/L (136-145); eGFR For African Americans > 60 (> 60); eGFR For Non-African Americans > 60 (> 60)
[2019-03-15] MEDS: Budesonide/Formoterol 80/4.5 1 PUFF INH IH SCH (07:17)
[2019-03-15] MEDS: predniSONE 20 MG TABLET PO SCH (07:49)
[2019-03-15] MEDS: Nicotine 21 MG PATCH.TD24 TD SCH (07:49)
[2019-03-15] MEDS: cefTRIAXone 1,000 MG in Water for inj. (sterile) 10 ML IVP SCH (07:49)
[2019-03-15] MEDS: Ketorolac 15 MG/ML VIAL IVP PRN ×3 (07:49→20:45)
[2019-03-15] MEDS: Aspirin 81 MG TAB.CHEW PO SCH (07:49)
[2019-03-15] MEDS ORDERED: predniSONE 20 MG TABLET PO SCH (09:00)
[2019-03-15] MEDS: Azithromycin 500 MG in 0.9 % Sodium Chloride 250 ML IVPB SCH (13:59)
[2019-03-15] MEDS: Albuterol 2.5 MG/3 ML NEBULIZER IH PRN (14:06)
[2019-03-15] MEDS ORDERED: Saline Nasal Spray 44 ML BOTTLE NS PRN (14:09)
[2019-03-15] MEDS: hydrOXYzine pamoate 25 MG CAPSULE PO PRN ×2 (14:18→22:28)
[2019-03-16 01:57] LABS: Basophils % 0.1 %; Eosinophils % 0.2 %; Hemoglobin 13.1 g/dL (11.5-15.4); Immature Granulocytes % 0.3 % (0-4); Lymphocytes # 1.9 K/mcL (0.6-4.6); Lymphocytes % 19.8 %; Mean Corpuscular HGB Conc 31.2 g/dL (31.6-35.5); Mean Corpuscular Volume 99.3 fL (83.0-100.0); Mean Platelet Volume 10.4 fL (9.4-12.4); Monocytes # 0.8 K/mcL (0.0-1.3); Monocytes % 8.2 %; Neutrophils # 6.8 K/mcL (1.6-8.9); Platelet Count 201 K/mcL (140-400); Red Blood Count 4.23 M/mcL (3.82-4.97); Red Cell Distribution Width 13.3 % (11.5-14.5); Segmented Neutrophils % 71.4 %; White Blood Count 9.5 K/mcL (4.3-11.1)
[2019-03-16 02:15] LABS: BUN/Creatinine Ratio 50 (6-26); Blood Urea Nitrogen 22 mg/dL (6-20); Calcium 8.9 mg/dL (8.6-10.3); Carbon Dioxide 34 mEq/L (23-29); Chloride 104 mEq/L (98-107); Glucose 106 mg/dL (70-105); Osmolality,Calculated 302 (280-300); Potassium 3.4 mEq/L (3.5-5.1); Sodium 144 mEq/L (136-145); eGFR For African Americans > 60 (> 60); eGFR For Non-African Americans > 60 (> 60)
[2019-03-16] MEDS: Ketorolac 15 MG/ML VIAL IVP PRN ×2 (03:15→16:25)
[2019-03-16] MEDS ORDERED: *HR* LORazepam 0.5 MG TABLET PO ONE (03:49)
[2019-03-16] MEDS: Ipratropium/Albuterol Neb 3 ML IH SCH ×5 (03:59→19:40)
[2019-03-16] MEDS: *HR* Heparin 5,000 UNIT/ML VIAL SQ SCH ×3 (05:02→20:52)
[2019-03-16] MEDS: cefTRIAXone 1,000 MG in Water for inj. (sterile) 10 ML IVP SCH (10:04)
[2019-03-16] MEDS: predniSONE 20 MG TABLET PO SCH (10:04)
[2019-03-16] MEDS: Aspirin 81 MG TAB.CHEW PO SCH (10:04)
[2019-03-16] MEDS: Nicotine 21 MG PATCH.TD24 TD SCH (10:06)
[2019-03-16] MEDS: Budesonide/Formoterol 80/4.5 1 PUFF INH IH SCH (11:11)
[2019-03-16] MEDS: Azithromycin 500 MG in 0.9 % Sodium Chloride 250 ML IVPB SCH (14:17)
[2019-03-16] MEDS: Albuterol 2.5 MG/3 ML NEBULIZER IH PRN (18:42)
[2019-03-16] MEDS ORDERED: *HR* LORazepam 0.5 MG TABLET PO SCH (21:00)
[2019-03-17] MEDS: Ipratropium/Albuterol Neb 3 ML IH SCH ×4 (00:01→11:07)
[2019-03-17 02:49] LABS: Basophils % 0.1 %; Eosinophils % 0.3 %; Hematocrit 45.5 % (35.3-44.9); Hemoglobin 14.5 g/dL (11.5-15.4); Immature Granulocytes % 0.5 % (0-4); Lymphocytes # 1.9 K/mcL (0.6-4.6); Lymphocytes % 24.9 %; Mean Corpuscular HGB Conc 31.9 g/dL (31.6-35.5); Mean Corpuscular Hemoglobin 31.2 pg (28.0-33.3); Mean Corpuscular Volume 97.8 fL (83.0-100.0); Mean Platelet Volume 10.7 fL (9.4-12.4); Monocytes # 0.6 K/mcL (0.0-1.3); Monocytes % 8.4 %; Platelet Count 219 K/mcL (140-400); Red Blood Count 4.65 M/mcL (3.82-4.97); Red Cell Distribution Width 13.2 % (11.5-14.5); Segmented Neutrophils % 65.8 %; White Blood Count 7.6 K/mcL (4.3-11.1)
[2019-03-17 03:07] LABS: BUN/Creatinine Ratio 38 (6-26); Blood Urea Nitrogen 18 mg/dL (6-20); Calcium 9.1 mg/dL (8.6-10.3); Carbon Dioxide 32 mEq/L (23-29); Chloride 108 mEq/L (98-107); Glucose 90 mg/dL (70-105); Osmolality,Calculated 307 (280-300); Potassium 3.9 mEq/L (3.5-5.1); Sodium 148 mEq/L (136-145); eGFR For African Americans > 60 (> 60); eGFR For Non-African Americans > 60 (> 60)
[2019-03-17] MEDS: Ketorolac 15 MG/ML VIAL IVP PRN ×2 (03:30→09:58)
[2019-03-17] MEDS: *HR* Heparin 5,000 UNIT/ML VIAL SQ SCH (06:22)
[2019-03-17] MEDS: Budesonide/Formoterol 80/4.5 1 PUFF INH IH SCH (07:18)
[2019-03-17 07:52] VITALS: BP 105/78
[2019-03-17] MEDS: Nicotine 21 MG PATCH.TD24 TD SCH (08:19)
[2019-03-17] MEDS: predniSONE 20 MG TABLET PO SCH (08:19)
[2019-03-17] MEDS: cefTRIAXone 1,000 MG in Water for inj. (sterile) 10 ML IVP SCH (08:19)
[2019-03-17] MEDS: Aspirin 81 MG TAB.CHEW PO SCH (08:19)
[2019-03-17] MEDS ORDERED: FLU Vac QV 19-20 (6Month+)/PF 0.5 ML SYRINGE IM ONE (11:05)
== END 2019-03-17 12:04 | disposition home or self-care (01) | DRG 720 ==
LOC: EMEROOARM 21:20 → 2NNU 21:20 → SUATTDRO 03-14 07:33 → 2NENU 03-16 19:33
PROVIDERS: ADMIT Family Medicine; ATTEND Internal Medicine

== ENCOUNTER 2020-10-16 22:23 | Observation (INO) ==
[2020-10-16] MEDS ORDERED: methylPREDNISolone 125 MG/2 ML VIAL IVP ONE (22:31)
[2020-10-16] MEDS ORDERED: Albuterol 2.5 MG/3 ML NEBULIZER IH ONE (22:31)
[2020-10-16] MEDS ORDERED: Albuterol 2.5 MG/3 ML NEBULIZER ONE (22:31)
[2020-10-16] MEDS ORDERED: 0.9 % Sodium Chloride 1,000 ML ONE (22:34)
[2020-10-16] MEDS ORDERED: 0.9 % Sodium Chloride 1,000 ML IVC ONE (22:35)
[2020-10-16] MEDS ORDERED: Azithromycin 250 MG TABLET PO ONE (22:45)
[2020-10-16 22:53] LABS: ABG Base Excess 2 mEq/L (-2 to 3); ABG HCO3 28 mEq/L (21-27); ABG Oxygen Saturation 94 % (95-98); ABG PCO2 47 mmHg (35-45); ABG PH 7.38 pH Units (7.32-7.45); ABG PO2 71 mmHg (85-104); ABG TCO2 29 mEq/L (20-26); Blood Gas Modality BiLevel
[2020-10-16] MEDS ORDERED: cefTRIAXone 1,000 MG in Water for inj. (sterile) 10 ML IVP ONE (23:00)
[2020-10-16 23:38] LABS: Basophils % 0.3 %; Eosinophils # 0.1 K/mcL (0.0-0.6); Eosinophils % 0.6 %; Hematocrit 40.4 % (35.3-44.9); Hemoglobin 13.3 g/dL (11.5-15.4); Immature Granulocytes % 0.4 % (0-4); Lymphocytes # 1.7 K/mcL (0.6-4.6); Lymphocytes % 14.6 %; Mean Corpuscular HGB Conc 32.9 g/dL (31.6-35.5); Mean Corpuscular Hemoglobin 30.8 pg (28.0-33.3); Mean Corpuscular Volume 93.5 fL (83.0-100.0); Mean Platelet Volume 10.3 fL (9.4-12.4); Monocytes # 0.8 K/mcL (0.0-1.3); Monocytes % 7.4 %; Neutrophils # 8.7 K/mcL (1.6-8.9); Platelet Count 218 K/mcL (140-400); Red Blood Count 4.32 M/mcL (3.82-4.97); Red Cell Distribution Width 12.3 % (11.5-14.5); Segmented Neutrophils % 76.7 %; White Blood Count 11.4 K/mcL (4.3-11.1)
[2020-10-17] LABS: Alanine Aminotransferase 11 Units/L (7-52); Albumin 3.7 g/dL (3.5-5.7); Albumin/Globulin Ratio 1.4 (1.1-2.2); Alkaline Phosphatase 68 Units/L (34-104); Aspartate Amino Transferase 14 Units/L (13-39); BUN/Creatinine Ratio 11 (6-26); Bilirubin,Indirect 0.3 mg/dL (0.0-1.0); Bilirubin,Total 0.3 mg/dL (0.3-1.0); Blood Urea Nitrogen 6 mg/dL (6-20); Calcium 8.3 mg/dL (8.6-10.3); Carbon Dioxide 24 mEq/L (23-29); Chloride 104 mEq/L (98-107); Globulin 2.6 g/dL (2.4-3.5); Glucose 130 mg/dL (70-105); Magnesium 1.6 mg/dL (1.6-2.6); Osmolality,Calculated 285 (280-300); Potassium 3.2 mEq/L (3.5-5.1); Sodium 138 mEq/L (136-145); Total Protein 6.3 g/dL (6.4-8.9); Troponin I < 0.03 ng/mL (< 0.04); eGFR For African Americans > 60 (> 60); eGFR For Non-African Americans > 60 (> 60)
[2020-10-17 00:01] LABS: Adenovirus Not Detected (Not Detect); Bordetella Pertussis Not Detected (Not Detect); Chlamydophila pneumoniae Not Detected (Not Detect); Coronavirus 229E Not Detected (Not Detect); Coronavirus HKU1 Not Detected (Not Detect); Coronavirus NL63 Not Detected (Not Detect); Coronavirus OC43 Not Detected (Not Detect); Human Metapneumovirus Not Detected (Not Detect); Human Rhinovirus/Enterovirus Not Detected (Not Detect); Influenza A Subtype 2009 H1 Not Detected (Not Detect); Influenza B Not Detected (Not Detect); Mycoplasma pneumoniae Not Detected (Not Detect); Parainfluenza Virus 1 Not Detected (Not Detect); Parainfluenza Virus 2 Not Detected (Not Detect); Parainfluenza Virus 3 Not Detected (Not Detect); Parainfluenza Virus 4 Not Detected (Not Detect); Respiratory Syncytial Virus Not Detected (Not Detect); SARS-CoV-2 Not Detected (Not Detect)
[2020-10-17] MEDS ORDERED: Ipratropium/Albuterol Neb 3 ML IH ONE (00:36)
[2020-10-17] MEDS ORDERED: Potassium Chloride Elixir 20 MEQ/15 ML UDC PO ONE (00:37)
[2020-10-17] MEDS ORDERED: Albuterol 2.5 MG/3 ML NEBULIZER ONE (00:39)
[2020-10-17] MEDS ORDERED: Naloxone 0.4 MG/ML INJ IVP PRN (03:00)
[2020-10-17] MEDS ORDERED: Melatonin 3 MG TABLET PO PRN (03:00)
[2020-10-17] MEDS ORDERED: Acetaminophen 325 MG TABLET PO PRN (03:00)
[2020-10-17] MEDS ORDERED: Ondansetron 4 MG/2 ML VIAL IVP PRN (03:00)
[2020-10-17] MEDS ORDERED: Albuterol 2.5 MG/3 ML NEBULIZER IH PRN (04:21)
[2020-10-17] MEDS: Ipratropium/Albuterol Neb 3 ML IH SCH ×3 (04:26→16:03)
[2020-10-17 05:11] LABS: Hematocrit 41.8 % (35.3-44.9); Hemoglobin 13.7 g/dL (11.5-15.4); Immature Granulocytes % 0.4 % (0-4); Lymphocytes # 0.4 K/mcL (0.6-4.6); Lymphocytes % 5.4 %; Mean Corpuscular HGB Conc 32.8 g/dL (31.6-35.5); Mean Corpuscular Hemoglobin 31.1 pg (28.0-33.3); Mean Corpuscular Volume 94.8 fL (83.0-100.0); Mean Platelet Volume 10.7 fL (9.4-12.4); Monocytes % 0.5 %; Neutrophils # 7.6 K/mcL (1.6-8.9); Platelet Count 213 K/mcL (140-400); Red Blood Count 4.41 M/mcL (3.82-4.97); Red Cell Distribution Width 12.6 % (11.5-14.5); Segmented Neutrophils % 93.7 %; White Blood Count 8.1 K/mcL (4.3-11.1)
[2020-10-17 05:35] LABS: Alanine Aminotransferase 13 Units/L (7-52); Albumin 4.2 g/dL (3.5-5.7); Albumin/Globulin Ratio 1.8 (1.1-2.2); Alkaline Phosphatase 76 Units/L (34-104); Aspartate Amino Transferase 17 Units/L (13-39); BUN/Creatinine Ratio 13 (6-26); Bilirubin,Total 0.3 mg/dL (0.3-1.0); Blood Urea Nitrogen 7 mg/dL (6-20); Calcium 9.5 mg/dL (8.6-10.3); Carbon Dioxide 26 mEq/L (23-29); Chloride 105 mEq/L (98-107); Globulin 2.4 g/dL (2.4-3.5); Glucose 160 mg/dL (70-105); Magnesium 1.7 mg/dL (1.6-2.6); Osmolality,Calculated 283 (280-300); Potassium 4.5 mEq/L (3.5-5.1); Sodium 136 mEq/L (136-145); Total Protein 6.6 g/dL (6.4-8.9); eGFR For African Americans > 60 (> 60); eGFR For Non-African Americans > 60 (> 60)
[2020-10-17] MEDS: Nicotine 21 MG PATCH.TD24 TD SCH ×2 (05:55→07:48)
[2020-10-17] MEDS ORDERED: 0.9 % Sodium Chloride 1,000 ML IVC ONE (07:20)
[2020-10-17] MEDS ORDERED: predniSONE 20 MG TABLET PO SCH (09:00)
[2020-10-17 11:23] VITALS: BP 101/33
[2020-10-17] MEDS ORDERED: *HR* Heparin 5,000 UNIT/ML VIAL SQ SCH (18:00)
[2020-10-17] MEDS ORDERED: cefTRIAXone 1,000 MG in Water for inj. (sterile) 10 ML IVP SCH (22:00)
[2020-10-18] MEDS ORDERED: Azithromycin 500 MG in 0.9 % Sodium Chloride 250 ML IVPB SCH (01:00)
== END 2020-10-17 16:42 | disposition home or self-care (01) ==
LOC: EMEROOARM 22:23 → 2NNU 22:23
PROVIDERS: ADMIT Student in an Organized Health Care Education/Training Program; ATTEND Student in an Organized Health Care Education/Training Program

== ENCOUNTER 2021-03-21 11:32 | Inpatient (IN) ==
[2021-03-21] MEDS ORDERED: methylPREDNISolone 125 MG/2 ML VIAL IVP ONE (11:41)
[2021-03-21] MEDS ORDERED: Ipratropium/Albuterol Neb 3 ML IH ONE (11:41)
[2021-03-21 12:10] LABS: Basophils % 0.1 %; Eosinophils # 0.1 K/mcL (0.0-0.6); Eosinophils % 0.4 %; Hematocrit 47.2 % (35.3-44.9); Hemoglobin 15.5 g/dL (11.5-15.4); Immature Granulocytes % 0.4 % (0-4); Lymphocytes # 1.3 K/mcL (0.6-4.6); Lymphocytes % 9.5 %; Mean Corpuscular HGB Conc 32.8 g/dL (31.6-35.5); Mean Corpuscular Hemoglobin 30.5 pg (28.0-33.3); Mean Corpuscular Volume 92.7 fL (83.0-100.0); Monocytes # 0.6 K/mcL (0.0-1.3); Monocytes % 4.6 %; Neutrophils # 11.6 K/mcL (1.6-8.9); Platelet Count 236 K/mcL (140-400); Red Blood Count 5.09 M/mcL (3.82-4.97); White Blood Count 13.6 K/mcL (4.3-11.1)
[2021-03-21 12:28] LABS: BUN/Creatinine Ratio 14 (6-26); Blood Urea Nitrogen 8 mg/dL (6-20); Calcium 9.7 mg/dL (8.6-10.3); Carbon Dioxide 32 mEq/L (23-29); Chloride 94 mEq/L (98-107); Glucose 126 mg/dL (70-105); Osmolality,Calculated 278 (280-300); Potassium 3.7 mEq/L (3.5-5.1); Sodium 134 mEq/L (136-145); Troponin I < 0.03 ng/mL (< 0.04); eGFR For African Americans > 60 (> 60); eGFR For Non-African Americans > 60 (> 60)
[2021-03-21] MEDS ORDERED: *HR* LORazepam 2 MG/ML VIAL IVP ONE (12:36)
[2021-03-21 12:40] LABS: Influenza A PCR Negative (Negative); Influenza B PCR Negative (Negative); Resp. Syncytial Virus PCR Negative (Negative); SARS-CoV-2 by PCR (In House) Negative (Negative)
[2021-03-21] MEDS ORDERED: Melatonin 3 MG TABLET PO PRN (13:15)
[2021-03-21] MEDS ORDERED: Naloxone 0.4 MG/ML INJ IVP PRN (13:15)
[2021-03-21] MEDS ORDERED: Nitroglycerin 0.4 MG TAB.SUBL SL PRN (15:14)
[2021-03-21] MEDS: Azithromycin 500 MG in 0.9 % Sodium Chloride 250 ML IVPB SCH (15:23)
[2021-03-21] MEDS: Ipratropium/Albuterol Neb 3 ML IH SCH ×2 (15:28→20:03)
[2021-03-21] MEDS: Nicotine 21 MG PATCH.TD24 TD SCH (18:11)
[2021-03-21] MEDS: Aspirin 81 MG TAB.CHEW PO SCH (18:11)
[2021-03-21] MEDS: MethylPREDNISolone 40 MG/ML VIAL IVP SCH ×2 (18:12→23:34)
[2021-03-21] MEDS: hydrOXYzine pamoate 25 MG CAPSULE PO SCH (19:48)
[2021-03-21] MEDS: Ondansetron 4 MG/2 ML VIAL IVP PRN (19:48)
[2021-03-21] MEDS: Budesonide/Formoterol 160/4.5 1 PUFF INH IH SCH (20:03)
[2021-03-22] MEDS: Ipratropium/Albuterol Neb 3 ML IH SCH ×6 (00:24→19:54)
[2021-03-22 02:40] LABS: Hematocrit 40.3 % (35.3-44.9); Immature Granulocytes % 0.3 % (0-4); Lymphocytes # 0.9 K/mcL (0.6-4.6); Mean Corpuscular HGB Conc 34.2 g/dL (31.6-35.5); Mean Corpuscular Hemoglobin 31.7 pg (28.0-33.3); Mean Corpuscular Volume 92.4 fL (83.0-100.0); Monocytes # 0.1 K/mcL (0.0-1.3); Monocytes % 2.2 %; Neutrophils # 2.7 K/mcL (1.6-8.9); Platelet Count 214 K/mcL (140-400); Red Blood Count 4.36 M/mcL (3.82-4.97); Red Cell Distribution Width 13.1 % (11.5-14.5); Segmented Neutrophils % 73.5 %; White Blood Count 3.6 K/mcL (4.3-11.1)
[2021-03-22 02:41] LABS: Hemoglobin 13.8 g/dL (11.5-15.4)
[2021-03-22 05:03] LABS: ABG Base Excess 6 mEq/L (-2 to 3); ABG HCO3 33 mEq/L (21-27); ABG Oxygen Saturation 97 % (95-98); ABG PCO2 59 mmHg (35-45); ABG PH 7.36 pH Units (7.32-7.45); ABG PO2 98 mmHg (85-104); ABG TCO2 35 mEq/L (20-26)
[2021-03-22] MEDS: *HR* Enoxaparin 40 MG/0.4 ML SYRINGE SQ SCH (05:29)
[2021-03-22] MEDS: MethylPREDNISolone 40 MG/ML VIAL IVP SCH ×3 (05:30→21:33)
[2021-03-22] MEDS: Budesonide/Formoterol 160/4.5 1 PUFF INH IH SCH ×2 (07:26→19:54)
[2021-03-22] MEDS ORDERED: Budesonide/Formoterol 80/4.5 1 PUFF INH IH SCH (09:00)
[2021-03-22] MEDS: Nicotine 21 MG PATCH.TD24 TD SCH (09:19)
[2021-03-22] MEDS: hydrOXYzine pamoate 25 MG CAPSULE PO SCH ×3 (09:19→21:33)
[2021-03-22] MEDS: Aspirin 81 MG TAB.CHEW PO SCH (09:19)
[2021-03-22] MEDS: Azithromycin 500 MG in 0.9 % Sodium Chloride 250 ML IVPB SCH (14:28)
[2021-03-22] MEDS: Acetaminophen 325 MG TABLET PO PRN (15:49)
[2021-03-23] MEDS: Ipratropium/Albuterol Neb 3 ML IH SCH ×6 (00:08→20:01)
[2021-03-23 02:30] LABS: Hematocrit 39.2 % (35.3-44.9); Immature Granulocytes % 0.3 % (0-4); Lymphocytes # 0.7 K/mcL (0.6-4.6); Lymphocytes % 6.9 %; Mean Corpuscular HGB Conc 33.2 g/dL (31.6-35.5); Mean Corpuscular Hemoglobin 31.1 pg (28.0-33.3); Mean Corpuscular Volume 93.8 fL (83.0-100.0); Mean Platelet Volume 10.6 fL (9.4-12.4); Monocytes # 0.2 K/mcL (0.0-1.3); Monocytes % 2.3 %; Neutrophils # 8.8 K/mcL (1.6-8.9); Platelet Count 208 K/mcL (140-400); Red Blood Count 4.18 M/mcL (3.82-4.97); Red Cell Distribution Width 13.1 % (11.5-14.5); Segmented Neutrophils % 90.5 %; White Blood Count 9.7 K/mcL (4.3-11.1)
[2021-03-23] MEDS: MethylPREDNISolone 40 MG/ML VIAL IVP SCH ×5 (04:48→20:57)
[2021-03-23] MEDS: *HR* Enoxaparin 40 MG/0.4 ML SYRINGE SQ SCH ×2 (04:48→04:52)
[2021-03-23] MEDS: Budesonide/Formoterol 160/4.5 1 PUFF INH IH SCH ×2 (07:23→20:01)
[2021-03-23] MEDS: Acetaminophen 325 MG TABLET PO PRN (08:00)
[2021-03-23] MEDS: hydrOXYzine pamoate 25 MG CAPSULE PO SCH ×3 (08:00→20:57)
[2021-03-23] MEDS: Nicotine 21 MG PATCH.TD24 TD SCH (08:00)
[2021-03-23] MEDS: Aspirin 81 MG TAB.CHEW PO SCH (08:01)
[2021-03-23] MEDS: Azithromycin 500 MG in 0.9 % Sodium Chloride 250 ML IVPB SCH (14:46)
[2021-03-23] MEDS ORDERED: Saline Nasal Spray 44 ML BOTTLE NS PRN (15:20)
[2021-03-23] MEDS: Acetylcysteine 10% 2 ML INHSOL IH SCH ×2 (15:30→20:01)
[2021-03-24] MEDS: Ipratropium/Albuterol Neb 3 ML IH SCH ×7 (00:13→23:05)
[2021-03-24] MEDS: MethylPREDNISolone 40 MG/ML VIAL IVP SCH ×5 (00:40→23:06)
[2021-03-24 02:52] LABS: Basophils % 0.1 %; Hematocrit 41.5 % (35.3-44.9); Hemoglobin 13.8 g/dL (11.5-15.4); Immature Granulocytes % 0.5 % (0-4); Lymphocytes # 0.8 K/mcL (0.6-4.6); Lymphocytes % 7.9 %; Mean Corpuscular HGB Conc 33.3 g/dL (31.6-35.5); Mean Corpuscular Hemoglobin 31.2 pg (28.0-33.3); Mean Corpuscular Volume 93.9 fL (83.0-100.0); Mean Platelet Volume 10.7 fL (9.4-12.4); Monocytes # 0.1 K/mcL (0.0-1.3); Monocytes % 1.4 %; Neutrophils # 9.3 K/mcL (1.6-8.9); Platelet Count 220 K/mcL (140-400); Red Blood Count 4.42 M/mcL (3.82-4.97); Red Cell Distribution Width 13.2 % (11.5-14.5); Segmented Neutrophils % 90.1 %; White Blood Count 10.3 K/mcL (4.3-11.1)
[2021-03-24] MEDS: *HR* Enoxaparin 40 MG/0.4 ML SYRINGE SQ SCH (05:35)
[2021-03-24] MEDS: Acetylcysteine 10% 2 ML INHSOL IH SCH ×3 (07:50→23:04)
[2021-03-24] MEDS: Budesonide/Formoterol 160/4.5 1 PUFF INH IH SCH ×2 (07:50→20:00)
[2021-03-24] MEDS: Aspirin 81 MG TAB.CHEW PO SCH (07:53)
[2021-03-24] MEDS: hydrOXYzine pamoate 25 MG CAPSULE PO SCH ×3 (07:54→20:29)
[2021-03-24] MEDS: Nicotine 21 MG PATCH.TD24 TD SCH (07:54)
[2021-03-24] MEDS: Ondansetron 4 MG/2 ML VIAL IVP PRN ×2 (13:30→20:32)
[2021-03-24] MEDS: Azithromycin 500 MG in 0.9 % Sodium Chloride 250 ML IVPB SCH (13:31)
[2021-03-25] MEDS: Ipratropium/Albuterol Neb 3 ML IH SCH ×3 (03:52→11:36)
[2021-03-25] MEDS: MethylPREDNISolone 40 MG/ML VIAL IVP SCH ×2 (05:21→13:08)
[2021-03-25] MEDS ORDERED: *HR* Enoxaparin 30 MG/0.3 ML SYRINGE SQ SCH (06:00)
[2021-03-25] MEDS ORDERED: Acetylcysteine 10% 2 ML INHSOL IH SCH (07:00)
[2021-03-25 07:13] VITALS: TEMP 98.3
[2021-03-25] MEDS: Budesonide/Formoterol 160/4.5 1 PUFF INH IH SCH (07:25)
[2021-03-25] MEDS: Nicotine 21 MG PATCH.TD24 TD SCH (08:46)
[2021-03-25] MEDS: Aspirin 81 MG TAB.CHEW PO SCH (08:46)
[2021-03-25] MEDS: hydrOXYzine pamoate 25 MG CAPSULE PO SCH (08:47)
[2021-03-25] MEDS: Acetaminophen 325 MG TABLET PO PRN (08:48)
[2021-03-25 10:55] VITALS: BP 105/60; PULSE 88
[2021-03-25] MEDS ORDERED: Azithromycin 250 MG TABLET PO SCH (14:00)
[2021-03-25 14:14] VITALS: O2SAT 93
== END 2021-03-25 13:31 | disposition home health service (06) | DRG 140 ==
LOC: EMEROOARM 11:32 → 3NENU 11:32 → SUATTDRO 18:18
PROVIDERS: ADMIT Hospitalist; ATTEND Hospitalist

== ENCOUNTER 2021-05-30 04:53 | Inpatient (IN) ==
[2021-05-30] MEDS ORDERED: levETIRAcetam 1,000 MG in 0.9 % Sodium Chloride 100 ML IVPB ONE (05:15)
[2021-05-30 05:21] LABS: Basophils % 0.2 %; Eosinophils % 0.1 %; Mean Corpuscular Volume 94.8 fL (83.0-100.0); Monocytes % 2.4 %
[2021-05-30 05:23] LABS: Basophils # 0.1 K/mcL (0.0-0.2); Hematocrit 43.6 % (35.3-44.9); Hemoglobin 14.2 g/dL (11.5-15.4); Immature Granulocytes % 1.8 % (0-4); Lymphocytes # 0.6 K/mcL (0.6-4.6); Mean Corpuscular HGB Conc 32.6 g/dL (31.6-35.5); Mean Corpuscular Hemoglobin 30.9 pg (28.0-33.3); Mean Platelet Volume 9.9 fL (9.4-12.4); Monocytes # 0.7 K/mcL (0.0-1.3); Neutrophils # 27.3 K/mcL (1.6-8.9); Platelet Count 299 K/mcL (140-400); Segmented Neutrophils % 93.5 %; White Blood Count 29.2 K/mcL (4.3-11.1)
[2021-05-30 05:42] LABS: Acetaminophen < 10 mcg/mL (10-20); Alanine Aminotransferase 10 Units/L (7-52); Albumin 4.4 g/dL (3.5-5.7); Albumin/Globulin Ratio 1.6 (1.1-2.2); Alkaline Phosphatase 78 Units/L (34-104); Aspartate Amino Transferase 16 Units/L (13-39); BUN/Creatinine Ratio 15 (6-26); Bilirubin,Total 0.2 mg/dL (0.3-1.0); Blood Urea Nitrogen 13 mg/dL (6-20); Calcium 9.9 mg/dL (8.6-10.3); Carbon Dioxide 26 mEq/L (23-29); Chloride 97 mEq/L (98-107); Ethanol < 10 mg/dL (Less than 10); Globulin 2.7 g/dL (2.4-3.5); Glucose 209 mg/dL (70-105); Magnesium 2.8 mg/dL (1.6-2.6); Osmolality,Calculated 284 (280-300); Potassium 3.5 mEq/L (3.5-5.1); Salicylate < 2.5 mg/dL (15.0-30.0); Sodium 134 mEq/L (136-145); Total Protein 7.1 g/dL (6.4-8.9); eGFR For African Americans > 60 (> 60); eGFR For Non-African Americans > 60 (> 60)
[2021-05-30 06:25] LABS: Bilirubin,Urine Negative (Negative); Blood,Urine Small (Negative); Clarity,Urine Turbid (Clear); Color,Urine Light-Yellow (Yellow); Glucose,Urine (UA) 300 mg/dL (Normal); Hyaline Casts,Urine Many per lpf (None Seen); Ketones,Urine Negative (Negative); Leukocyte Esterase,Urine Trace (Negative); Mucus,Urine Few per lpf (None-Few); Nitrite,Urine Negative (Negative); Protein,Urine 100 mg/dL (Neg-Trace); RBC,Urine 0-3 per hpf (0-3); Specific Gravity,Urine 1.015 (1.010-1.025); Squamous Epithelial Cell,Urine Few per hpf (None-Few); Urobilinogen,Urine Normal (Normal)
[2021-05-30] MEDS ORDERED: 0.9 % Sodium Chloride 1,000 ML IV ONE (06:28)
[2021-05-30 06:35] LABS: Amphetamine Screen,Urine Negative ng/mL (Cutoff=1000); Barbiturate Screen,Urine Negative ng/mL (Cutoff=200)
[2021-05-30 06:37] LABS: Benzodiazepines Screen,Urine Negative ng/mL (Cutoff=300); Cannabinoid Screen,Urine Negative ng/mL (Cutoff = 50); Cocaine Screen,Urine Negative ng/mL (Cutoff= 300); Opiate Screen,Urine Negative ng/mL (Cutoff=300); Phencyclidine Screen,Urine Negative ng/mL (Cutoff=25)
[2021-05-30 07:02] LABS: Platelet Estimate Normal (Normal)
[2021-05-30] MEDS ORDERED: Ondansetron 4 MG/2 ML VIAL IVP PRN (07:19)
[2021-05-30] MEDS ORDERED: Naloxone 0.4 MG/ML INJ IVP PRN (07:19)
[2021-05-30] MEDS ORDERED: Gadolinium Contrast Agent (WT Based) IV PRN (07:32)
[2021-05-30] MEDS ORDERED: *HR* LORazepam 2 MG/ML VIAL IVP PRN (07:37)
[2021-05-30] MEDS ORDERED: Ipratropium/Albuterol Neb 3 ML IH PRN (08:31)
[2021-05-30 08:42] LABS: ABG Base Excess 1 mEq/L (-2 to 3); ABG HCO3 30 mEq/L (21-27); ABG Oxygen Saturation 94 % (95-98); ABG PCO2 67 mmHg (35-45); ABG PH 7.25 pH Units (7.32-7.45); ABG PO2 86 mmHg (85-104); ABG TCO2 32 mEq/L (20-26)
[2021-05-30 10:44] LABS: Red Blood Cell,CSF < 2000 RBC/mcL
[2021-05-30 10:45] LABS: Appearance,CSF Clear (Clear)
[2021-05-30 11:09] LABS: Glucose,CSF 89 mg/dL (40-70); Total Protein,CSF 30 mg/dL (15-45)
[2021-05-30 11:14] LABS: INR 1.1; Prothrombin Time 11.7 Seconds (9.4-12.1)
[2021-05-30] MEDS ORDERED: Lidocaine -MPF 1% 5 ML AMPUL INFILT ONE (11:16)
[2021-05-30] MEDS: Dexamethasone Sodium Phos/PF 10 MG/ML VIAL IVP SCH ×2 (11:17→21:40)
[2021-05-30] MEDS: Acyclovir 500 MG in D5% in Water 250 ML IVPB SCH ×2 (11:19→18:35)
[2021-05-30] MEDS: cefTRIAXone 2,000 MG in 0.9 % Sodium Chloride Mini Bag 100 ML IVPB SCH ×2 (11:19→21:41)
[2021-05-30 12:00] LABS: Adenovirus Not Detected (Not Detect); Bordetella Pertussis Not Detected (Not Detect); Chlamydophila pneumoniae Not Detected (Not Detect); Coronavirus 229E Not Detected (Not Detect); Coronavirus HKU1 Not Detected (Not Detect); Coronavirus NL63 Not Detected (Not Detect); Coronavirus OC43 Not Detected (Not Detect); Human Metapneumovirus Not Detected (Not Detect); Human Rhinovirus/Enterovirus Not Detected (Not Detect); Influenza A Subtype 2009 H1 Not Detected (Not Detect); Influenza B Not Detected (Not Detect); Mycoplasma pneumoniae Not Detected (Not Detect); Parainfluenza Virus 1 Not Detected (Not Detect); Parainfluenza Virus 2 Not Detected (Not Detect); Parainfluenza Virus 3 Not Detected (Not Detect); Parainfluenza Virus 4 Not Detected (Not Detect); Respiratory Syncytial Virus Not Detected (Not Detect); SARS-CoV-2 Not Detected (Not Detect)
[2021-05-30] MEDS ORDERED: Isovue-370 500 ML BOTTLE IVP ONE (14:18)
[2021-05-30 16:04] LABS: ABG Base Excess 3 mEq/L (-2 to 3); ABG HCO3 31 mEq/L (21-27); ABG Oxygen Saturation 97 % (95-98); ABG PCO2 66 mmHg (35-45); ABG PH 7.28 pH Units (7.32-7.45); ABG PO2 100 mmHg (85-104); ABG TCO2 33 mEq/L (20-26)
[2021-05-31] MEDS: Acyclovir 500 MG in D5% in Water 250 ML IVPB SCH (02:40)
[2021-05-31 04:04] LABS: Hematocrit 37.5 % (35.3-44.9); Immature Granulocytes % 0.4 % (0-4); Lymphocytes # 0.7 K/mcL (0.6-4.6); Lymphocytes % 9.6 %; Mean Corpuscular Hemoglobin 30.7 pg (28.0-33.3); Mean Corpuscular Volume 95.9 fL (83.0-100.0); Monocytes # 0.1 K/mcL (0.0-1.3); Monocytes % 0.7 %; Neutrophils # 6.9 K/mcL (1.6-8.9); Platelet Count 259 K/mcL (140-400); Red Blood Count 3.91 M/mcL (3.82-4.97); Red Cell Distribution Width 13.2 % (11.5-14.5); Segmented Neutrophils % 89.3 %
[2021-05-31 04:08] LABS: White Blood Count 7.7 K/mcL (4.3-11.1)
[2021-05-31 04:22] LABS: BUN/Creatinine Ratio 24 (6-26); Blood Urea Nitrogen 11 mg/dL (6-20); Calcium 9.2 mg/dL (8.6-10.3); Carbon Dioxide 33 mEq/L (23-29); Chloride 102 mEq/L (98-107); Glucose 187 mg/dL (70-105); Osmolality,Calculated 284 (280-300); Sodium 135 mEq/L (136-145); eGFR For African Americans > 60 (> 60); eGFR For Non-African Americans > 60 (> 60)
[2021-05-31] MEDS: Aspirin 81 MG TAB.CHEW PO SCH (09:47)
[2021-05-31] MEDS: Nicotine 21 MG PATCH.TD24 TD SCH (09:48)
[2021-05-31] MEDS: cefTRIAXone 1,000 MG in 0.9 % Sodium Chloride Mini Bag 100 ML IVP SCH (09:48)
[2021-05-31] MEDS ORDERED: *HR* LORazepam 2 MG/ML VIAL IVP ONE (10:16)
[2021-05-31] MEDS ORDERED: Melatonin 3 MG TABLET PO PRN (21:09)
[2021-06-01] MEDS ORDERED: Acetaminophen 325 MG TABLET PO PRN ×2 (02:42→02:43)
[2021-06-01 03:38] LABS: BUN/Creatinine Ratio 37 (6-26); Blood Urea Nitrogen 15 mg/dL (6-20); Calcium 8.9 mg/dL (8.6-10.3); Carbon Dioxide 35 mEq/L (23-29); Chloride 101 mEq/L (98-107); Glucose 90 mg/dL (70-105); Osmolality,Calculated 286 (280-300); Potassium 3.6 mEq/L (3.5-5.1); Sodium 138 mEq/L (136-145); eGFR For African Americans > 60 (> 60); eGFR For Non-African Americans > 60 (> 60)
[2021-06-01 04:11] VITALS: TEMP 97.6
[2021-06-01] MEDS ORDERED: *HR* Enoxaparin 30 MG/0.3 ML SYRINGE SQ SCH (06:00)
[2021-06-01] MEDS: cefTRIAXone 1,000 MG in 0.9 % Sodium Chloride Mini Bag 100 ML IVP SCH (08:56)
[2021-06-01] MEDS: Aspirin 81 MG TAB.CHEW PO SCH (08:58)
[2021-06-01] MEDS: Nicotine 21 MG PATCH.TD24 TD SCH (08:58)
[2021-06-01 11:35] VITALS: BP 157/86; PULSE 91
[2021-06-01 12:27] VITALS: O2SAT 100
[2021-06-02 06:30] LABS: HSV 2 Glycoprotein G IgG 0.82 IV (<=0.89)
[2021-06-02 15:21] LABS: HSV 2 Glycoprotein G IgG CSF 0.01 IV (<=0.89)
[2021-06-02 15:22] LABS: HSV 1 Glycoprotein G IgG CSF 0.22 IV (<=0.89)
== END 2021-06-01 14:40 | disposition home or self-care (01) | DRG 53 ==
LOC: EMEROOARM 04:53 → 2NNU 04:53 → SUATTDRO 07:40 → 2NNU 10:24 → SUATTDRO 12:25 → 2NNU 14:12
PROVIDERS: ADMIT Pharmacist; ATTEND Internal Medicine

== ENCOUNTER 2021-10-19 09:11 | Observation (INO) ==
[2021-10-19] MEDS ORDERED: Albuterol 2.5 MG/3 ML NEBULIZER IH ONE (09:23)
[2021-10-19] MEDS ORDERED: methylPREDNISolone 125 MG/2 ML VIAL IVP ONE (09:23)
[2021-10-19] MEDS ORDERED: Ipratropium/Albuterol Neb 3 ML IH ONE (09:23)
[2021-10-19] MEDS ORDERED: cefTRIAXone 1,000 MG in 0.9 % Sodium Chloride Mini Bag 100 ML IVPB ONE (09:27)
[2021-10-19] MEDS ORDERED: Azithromycin 250 MG TABLET PO ONE (09:27)
[2021-10-19 09:41] LABS: ABG Base Excess 2 mEq/L (-2 to 3); ABG HCO3 28 mEq/L (21-27); ABG Oxygen Saturation 98 % (95-98); ABG PCO2 47 mmHg (35-45); ABG PH 7.39 pH Units (7.32-7.45); ABG PO2 113 mmHg (85-104); ABG TCO2 30 mEq/L (20-26)
[2021-10-19 09:48] LABS: Basophils % 0.2 %; Eosinophils % 0.1 %; Hematocrit 44.7 % (35.3-44.9); Hemoglobin 15.2 g/dL (11.5-15.4); Immature Granulocytes % 0.9 % (0-4); Lymphocytes # 1.4 K/mcL (0.6-4.6); Lymphocytes % 7.5 %; Mean Corpuscular Hemoglobin 30.5 pg (28.0-33.3); Mean Corpuscular Volume 89.8 fL (83.0-100.0); Mean Platelet Volume 10.2 fL (9.4-12.4); Monocytes # 1.4 K/mcL (0.0-1.3); Monocytes % 7.2 %; Neutrophils # 16.1 K/mcL (1.6-8.9); Platelet Count 313 K/mcL (140-400); Red Blood Count 4.98 M/mcL (3.82-4.97); Red Cell Distribution Width 13.2 % (11.5-14.5); Segmented Neutrophils % 84.1 %; White Blood Count 19.2 K/mcL (4.3-11.1)
[2021-10-19 10:06] LABS: Alanine Aminotransferase 19 Units/L (7-52); Albumin 4.1 g/dL (3.5-5.7); Albumin/Globulin Ratio 1.5 (1.1-2.2); Alkaline Phosphatase 88 Units/L (34-104); Aspartate Amino Transferase 26 Units/L (13-39); BUN/Creatinine Ratio 16 (6-26); Bilirubin,Total 0.5 mg/dL (0.3-1.0); Blood Urea Nitrogen 12 mg/dL (6-20); Calcium 9.7 mg/dL (8.6-10.3); Carbon Dioxide 29 mEq/L (23-29); Chloride 98 mEq/L (98-107); Globulin 2.7 g/dL (2.4-3.5); Glucose 129 mg/dL (70-105); Osmolality,Calculated 281 (280-300); Potassium 4.6 mEq/L (3.5-5.1); Sodium 135 mEq/L (136-145); Total Protein 6.8 g/dL (6.4-8.9); eGFR For African Americans > 60 (> 60); eGFR For Non-African Americans > 60 (> 60)
[2021-10-19 10:38] LABS: Adenovirus Not Detected (Not Detect); Bordetella Pertussis Not Detected (Not Detect); Chlamydophila pneumoniae Not Detected (Not Detect); Coronavirus 229E Not Detected (Not Detect); Coronavirus HKU1 Not Detected (Not Detect); Coronavirus NL63 Not Detected (Not Detect); Coronavirus OC43 Not Detected (Not Detect); Human Metapneumovirus Not Detected (Not Detect); Human Rhinovirus/Enterovirus Not Detected (Not Detect); Influenza A Subtype 2009 H1 Not Detected (Not Detect); Influenza B Not Detected (Not Detect); Mycoplasma pneumoniae Not Detected (Not Detect); Parainfluenza Virus 1 Not Detected (Not Detect); Parainfluenza Virus 2 Not Detected (Not Detect); Parainfluenza Virus 3 Not Detected (Not Detect); Parainfluenza Virus 4 Not Detected (Not Detect); Respiratory Syncytial Virus Not Detected (Not Detect); SARS-CoV-2 Not Detected (Not Detect)
[2021-10-19] MEDS ORDERED: Naloxone 0.4 MG/ML INJ IVP PRN (10:46)
[2021-10-19] MEDS ORDERED: Albuterol 2.5 MG/3 ML NEBULIZER IH PRN (10:53)
[2021-10-19] MEDS: Ipratropium/Albuterol Neb 3 ML IH SCH ×4 (11:18→23:36)
[2021-10-19] MEDS: methylPREDNISolone 125 MG/2 ML VIAL IVP SCH (15:44)
[2021-10-19] MEDS: Acetaminophen 325 MG TABLET PO PRN (20:03)
[2021-10-19] MEDS ORDERED: 0.9 % Sodium Chloride 500 ML IVC ONE (21:14)
[2021-10-19] MEDS ORDERED: *HR* LORazepam 2 MG/ML VIAL IVP ONE (21:15)
[2021-10-20] MEDS: methylPREDNISolone 125 MG/2 ML VIAL IVP SCH ×2 (00:20→09:29)
[2021-10-20 02:12] LABS: Basophils % 0.1 %; Hematocrit 39.3 % (35.3-44.9); Immature Granulocytes % 0.8 % (0-4); Lymphocytes # 1.4 K/mcL (0.6-4.6); Lymphocytes % 11.7 %; Mean Corpuscular HGB Conc 33.1 g/dL (31.6-35.5); Mean Corpuscular Hemoglobin 30.1 pg (28.0-33.3); Mean Platelet Volume 10.4 fL (9.4-12.4); Monocytes # 0.3 K/mcL (0.0-1.3); Monocytes % 2.4 %; Neutrophils # 9.9 K/mcL (1.6-8.9); Platelet Count 246 K/mcL (140-400); Red Blood Count 4.32 M/mcL (3.82-4.97); Red Cell Distribution Width 13.1 % (11.5-14.5); White Blood Count 11.6 K/mcL (4.3-11.1)
[2021-10-20 02:27] LABS: BUN/Creatinine Ratio 21 (6-26); Blood Urea Nitrogen 12 mg/dL (6-20); Calcium 9.2 mg/dL (8.6-10.3); Carbon Dioxide 31 mEq/L (23-29); Chloride 99 mEq/L (98-107); Glucose 112 mg/dL (70-105); Osmolality,Calculated 279 (280-300); Potassium 4.7 mEq/L (3.5-5.1); Sodium 134 mEq/L (136-145); eGFR For African Americans > 60 (> 60); eGFR For Non-African Americans > 60 (> 60)
[2021-10-20] MEDS: Ipratropium/Albuterol Neb 3 ML IH SCH ×3 (04:15→11:14)
[2021-10-20] MEDS ORDERED: *HR* Enoxaparin 40 MG/0.4 ML SYRINGE SQ SCH (06:00)
[2021-10-20] MEDS ORDERED: Azithromycin 250 MG TABLET PO SCH (09:00)
[2021-10-20] MEDS: Acetaminophen 325 MG TABLET PO PRN (09:37)
[2021-10-20 11:18] VITALS: BP 80/39; PULSE 75; TEMP 97.6; O2SAT 100
[2021-10-20] MEDS ORDERED: 0.9 % Sodium Chloride 250 ML IVC ONE ×2 (11:31→12:43)
== END 2021-10-20 13:50 | disposition home or self-care (01) ==
LOC: 2NENU 09:11 → EMEROOARM 09:11 → 2NENU 11:34
PROVIDERS: ADMIT Internal Medicine; ATTEND Internal Medicine

== ENCOUNTER 2021-11-20 18:46 | Inpatient (IN) ==
[2021-11-21] MEDS ORDERED: Naloxone 0.4 MG/ML INJ IVP PRN (00:35)
[2021-11-21] MEDS ORDERED: Ondansetron ODT 4 MG TAB.RAPDIS SL PRN (00:35)
[2021-11-21 01:49] LABS: Hematocrit 39.5 % (35.3-44.9); Hemoglobin 13.4 g/dL (11.5-15.4); Mean Corpuscular HGB Conc 33.9 g/dL (31.6-35.5); Mean Corpuscular Hemoglobin 30.7 pg (28.0-33.3); Mean Corpuscular Volume 90.4 fL (83.0-100.0); Mean Platelet Volume 10.3 fL (9.4-12.4); Platelet Count 284 K/mcL (140-400); Red Blood Count 4.37 M/mcL (3.82-4.97); Red Cell Distribution Width 12.8 % (11.5-14.5); White Blood Count 15.8 K/mcL (4.3-11.1)
[2021-11-21 02:12] LABS: BUN/Creatinine Ratio 32 (6-26); Blood Urea Nitrogen 18 mg/dL (6-20); Carbon Dioxide 25 mEq/L (23-29); Chloride 106 mEq/L (98-107); Glucose 101 mg/dL (70-105); Osmolality,Calculated 288 (280-300); Potassium 3.9 mEq/L (3.5-5.1); Sodium 138 mEq/L (136-145); eGFR For African Americans > 60 (> 60); eGFR For Non-African Americans > 60 (> 60)
[2021-11-21] MEDS: Gabapentin 400 MG CAPSULE PO SCH ×2 (15:43→21:17)
[2021-11-21] MEDS: Levalbuterol Neb 1.25 MG/3 ML IH SCH (22:09)
[2021-11-22] MEDS: Acetaminophen 325 MG TABLET PO PRN ×2 (03:34→15:59)
[2021-11-22] MEDS: Levalbuterol Neb 1.25 MG/3 ML IH SCH ×4 (04:57→19:51)
[2021-11-22] MEDS: Gabapentin 400 MG CAPSULE PO SCH ×3 (09:50→19:31)
[2021-11-22 11:27] LABS: Basophils % 0.2 %; Eosinophils # 0.1 K/mcL (0.0-0.6); Eosinophils % 0.5 %; Hematocrit 48.2 % (35.3-44.9); Hemoglobin 15.9 g/dL (11.5-15.4); Immature Granulocytes % 0.7 % (0-4); Lymphocytes # 2.7 K/mcL (0.6-4.6); Lymphocytes % 20.2 %; Mean Corpuscular Hemoglobin 30.7 pg (28.0-33.3); Mean Corpuscular Volume 93.1 fL (83.0-100.0); Mean Platelet Volume 10.4 fL (9.4-12.4); Monocytes % 7.7 %; Neutrophils # 9.4 K/mcL (1.6-8.9); Platelet Count 347 K/mcL (140-400); Red Blood Count 5.18 M/mcL (3.82-4.97); Red Cell Distribution Width 13.2 % (11.5-14.5); Segmented Neutrophils % 70.7 %; White Blood Count 13.3 K/mcL (4.3-11.1)
[2021-11-22] MEDS: Thiamine (B-1) 100 MG TABLET PO SCH (14:52)
[2021-11-23] MEDS: Melatonin 3 MG TABLET PO PRN (00:32)
[2021-11-23] MEDS: Acetaminophen 325 MG TABLET PO PRN (00:32)
[2021-11-23 01:24] LABS: Basophils % 0.2 %; Eosinophils # 0.1 K/mcL (0.0-0.6); Eosinophils % 1.1 %; Hematocrit 41.8 % (35.3-44.9); Hemoglobin 13.6 g/dL (11.5-15.4); Immature Granulocytes % 0.5 % (0-4); Lymphocytes % 23.7 %; Mean Corpuscular HGB Conc 32.5 g/dL (31.6-35.5); Mean Corpuscular Hemoglobin 30.6 pg (28.0-33.3); Mean Corpuscular Volume 93.9 fL (83.0-100.0); Mean Platelet Volume 10.3 fL (9.4-12.4); Monocytes % 7.9 %; Neutrophils # 8.4 K/mcL (1.6-8.9); Platelet Count 260 K/mcL (140-400); Red Blood Count 4.45 M/mcL (3.82-4.97); Red Cell Distribution Width 13.1 % (11.5-14.5); Segmented Neutrophils % 66.6 %; White Blood Count 12.6 K/mcL (4.3-11.1)
[2021-11-23] MEDS: Levalbuterol Neb 1.25 MG/3 ML IH SCH ×4 (04:22→21:40)
[2021-11-23] MEDS ORDERED: QUEtiapine Fumarate 25 MG TABLET PO PRN (08:07)
[2021-11-23] MEDS ORDERED: Haloperidol Lactate 5 MG/ML VIAL IM ONE (08:07)
[2021-11-23] MEDS: Thiamine (B-1) 100 MG TABLET PO SCH (08:39)
[2021-11-23] MEDS: Gabapentin 400 MG CAPSULE PO SCH ×4 (08:39→20:21)
[2021-11-23] MEDS: Tiotropium 10 INH DOSE IH SCH (10:27)
[2021-11-23] MEDS: Budesonide/Formoterol 80/4.5 1 PUFF INH IH SCH (10:27)
[2021-11-23] MEDS: predniSONE 20 MG TABLET PO SCH (11:44)
[2021-11-23] MEDS: Azithromycin 250 MG TABLET PO SCH (11:44)
[2021-11-23] MEDS: QUEtiapine Fumarate 25 MG TABLET PO PRN (22:05)
[2021-11-24] MEDS: Levalbuterol Neb 1.25 MG/3 ML IH SCH ×5 (03:48→22:57)
[2021-11-24] MEDS: Acetaminophen 325 MG TABLET PO PRN (04:38)
[2021-11-24] MEDS: *HR* Enoxaparin 40 MG/0.4 ML SYRINGE SQ SCH (04:40)
[2021-11-24] MEDS: Gabapentin 400 MG CAPSULE PO SCH ×3 (07:53→19:54)
[2021-11-24] MEDS: predniSONE 20 MG TABLET PO SCH (07:53)
[2021-11-24] MEDS: Azithromycin 250 MG TABLET PO SCH (07:54)
[2021-11-24] MEDS: Thiamine (B-1) 100 MG TABLET PO SCH (07:54)
[2021-11-24] MEDS ORDERED: Haloperidol Lactate 5 MG/ML VIAL IM ONE (08:42)
[2021-11-24] MEDS: Tiotropium 10 INH DOSE IH SCH (10:02)
[2021-11-24] MEDS: Budesonide/Formoterol 80/4.5 1 PUFF INH IH SCH (10:02)
[2021-11-24] MEDS: Divalproex Sodium 125 MG Sprinkle Capsule (DR) PO SCH ×2 (16:43→19:53)
[2021-11-24] MEDS: Melatonin 3 MG TABLET PO PRN (19:54)
[2021-11-24] MEDS: QUEtiapine Fumarate 25 MG TABLET PO PRN (19:54)
[2021-11-25] MEDS ORDERED: Saline Nasal Spray 44 ML BOTTLE NS PRN (03:55)
[2021-11-25] MEDS: Levalbuterol Neb 1.25 MG/3 ML IH SCH ×4 (04:01→21:49)
[2021-11-25] MEDS: *HR* Enoxaparin 40 MG/0.4 ML SYRINGE SQ SCH (06:20)
[2021-11-25] MEDS: Azithromycin 250 MG TABLET PO SCH (09:02)
[2021-11-25] MEDS: Divalproex Sodium 125 MG Sprinkle Capsule (DR) PO SCH ×3 (09:03→20:56)
[2021-11-25] MEDS: Thiamine (B-1) 100 MG TABLET PO SCH (09:03)
[2021-11-25] MEDS: predniSONE 20 MG TABLET PO SCH (09:03)
[2021-11-25] MEDS: Gabapentin 400 MG CAPSULE PO SCH ×3 (09:05→20:57)
[2021-11-25] MEDS: Tiotropium 10 INH DOSE IH SCH (09:07)
[2021-11-25] MEDS: Budesonide/Formoterol 80/4.5 1 PUFF INH IH SCH (09:07)
[2021-11-25] MEDS: QUEtiapine Fumarate 25 MG TABLET PO PRN (20:56)
[2021-11-26] MEDS: Levalbuterol Neb 1.25 MG/3 ML IH SCH ×4 (03:33→22:13)
[2021-11-26] MEDS: *HR* Enoxaparin 40 MG/0.4 ML SYRINGE SQ SCH (07:14)
[2021-11-26] MEDS: Divalproex Sodium 125 MG Sprinkle Capsule (DR) PO SCH ×3 (08:06→19:58)
[2021-11-26] MEDS: Thiamine (B-1) 100 MG TABLET PO SCH (08:07)
[2021-11-26] MEDS: predniSONE 20 MG TABLET PO SCH (08:07)
[2021-11-26] MEDS: Gabapentin 400 MG CAPSULE PO SCH ×3 (08:07→19:57)
[2021-11-26] MEDS ORDERED: Moderna Covid-19 Vaccine 100MCG/0.5mL IM ONE (08:24)
[2021-11-26] MEDS: Tiotropium 10 INH DOSE IH SCH (10:23)
[2021-11-26] MEDS: Budesonide/Formoterol 80/4.5 1 PUFF INH IH SCH (10:23)
[2021-11-26] MEDS: Acetaminophen 325 MG TABLET PO PRN (16:52)
[2021-11-27] MEDS: Levalbuterol Neb 1.25 MG/3 ML IH SCH ×4 (03:44→22:08)
[2021-11-27] MEDS: *HR* Enoxaparin 40 MG/0.4 ML SYRINGE SQ SCH (05:59)
[2021-11-27] MEDS: predniSONE 20 MG TABLET PO SCH (08:50)
[2021-11-27] MEDS: Thiamine (B-1) 100 MG TABLET PO SCH (08:50)
[2021-11-27] MEDS: Gabapentin 400 MG CAPSULE PO SCH ×3 (08:52→20:49)
[2021-11-27] MEDS: Divalproex Sodium 125 MG Sprinkle Capsule (DR) PO SCH ×3 (09:16→20:49)
[2021-11-27] MEDS: Tiotropium 10 INH DOSE IH SCH (10:15)
[2021-11-27] MEDS: Budesonide/Formoterol 80/4.5 1 PUFF INH IH SCH (10:15)
[2021-11-27 14:47] VITALS: TEMP 97.6
[2021-11-28] MEDS: Levalbuterol Neb 1.25 MG/3 ML IH SCH ×2 (03:32→11:00)
[2021-11-28] MEDS: *HR* Enoxaparin 40 MG/0.4 ML SYRINGE SQ SCH (06:09)
[2021-11-28 06:30] VITALS: BP 108/77; PULSE 76
[2021-11-28] MEDS: Divalproex Sodium 125 MG Sprinkle Capsule (DR) PO SCH ×2 (08:24→08:29)
[2021-11-28] MEDS: Thiamine (B-1) 100 MG TABLET PO SCH (08:25)
[2021-11-28] MEDS: Gabapentin 400 MG CAPSULE PO SCH (08:33)
[2021-11-28] MEDS ORDERED: Moderna Covid-19 Vaccine 100MCG/0.5mL IM ONE (10:18)
[2021-11-28] MEDS: Tiotropium 10 INH DOSE IH SCH (11:00)
[2021-11-28] MEDS: Budesonide/Formoterol 80/4.5 1 PUFF INH IH SCH (11:01)
[2021-11-28 11:02] VITALS: O2SAT 97
[2021-11-28 12:04] LABS: Adenovirus Not Detected (Not Detect); Bordetella Pertussis Not Detected (Not Detect); Chlamydophila pneumoniae Not Detected (Not Detect); Coronavirus 229E Not Detected (Not Detect); Coronavirus HKU1 Not Detected (Not Detect); Coronavirus NL63 Not Detected (Not Detect); Coronavirus OC43 Not Detected (Not Detect); Human Metapneumovirus Not Detected (Not Detect); Human Rhinovirus/Enterovirus Not Detected (Not Detect); Influenza A Subtype 2009 H1 Not Detected (Not Detect); Influenza B Not Detected (Not Detect); Mycoplasma pneumoniae Not Detected (Not Detect); Parainfluenza Virus 1 Not Detected (Not Detect); Parainfluenza Virus 2 Not Detected (Not Detect); Parainfluenza Virus 3 Not Detected (Not Detect); Parainfluenza Virus 4 Not Detected (Not Detect); Respiratory Syncytial Virus Not Detected (Not Detect); SARS-CoV-2 Not Detected (Not Detect)
== END 2021-11-28 13:09 | DRG 52 ==
LOC: 3BNU → SUATTDRO 11-21 00:03
PROVIDERS: ADMIT Family Medicine; ATTEND Registered Nurse